=== PATIENT | female | born 1985 | race Caucasian/White ===

== ENCOUNTER 2018-01-27 08:00 | Outpatient (RCR) | payer BC, SELFPAY | END 2018-01-27 15:04 | disposition home or self-care (01) | LOC: PT 08:00 | PROVIDERS: Visit Provider Orthopaedic Surgery Adult Reconstructive Orthopaedic Surgery | DX: S92.214A Nondisplaced fracture of cuboid bone of right foot, initial encounter for closed fracture (principal); S93.401A Sprain of unspecified ligament of right ankle, initial encounter | CPT/HCPCS: 97010; 97033; 97035; 97110; 97140; 97164 ==

== ENCOUNTER → 2020-08-24 10:43 | Outpatient (CLI) | payer BC, SELFPAY | PROVIDERS: PCP Nurse Practitioner Family; Visit Provider Internal Medicine Cardiovascular Disease | DX: R00.2 Palpitations (principal); R01.1 Cardiac murmur, unspecified; E07.9 Disorder of thyroid, unspecified; Z86.32 Personal history of gestational diabetes | CPT/HCPCS: 93270 ==

== ENCOUNTER → 2020-09-01 07:46 | Outpatient (CLI) | payer BC, SELFPAY ==
--- NOTE | 2020-09-01 07:47 | CA_ITS ---
APPROVED REPORT EXAM: Comprehensive 2D, Doppler, and color-flow Echocardiogram Healthcare Financial Analyst: Laurel Do RT(R) Ht: 5 ft 4 in Wt: 180lbs BSA: 1.87 BP: 129/69 mmHg Indications: Palpitations, murmur, tachcyardia, patient currently wearing 30 day event monitor 2D Dimensions LVOT 1.84 cm (M/F) 1.5-2.5 LVEF (Ramirez's) 61.00 % F: 54 - 74 LV Volume 105.00 mL F: 46 - 106 LV Volume Index 56.14 mL/m2 F: 29 - 61 M-Mode Dimensions RVDd 2.66 cm (0.9-2.6) LA Diam 3.51 cm (1.9-4.0) LVDd 4.26 cm (3.5-5.7) Ao Diam 2.74 cm (2.0-3.7) LVDs 3.08 cm (3.5-5.7) IVSd 0.95 cm (0.6-1.1) PWd 1.03 cm (0.6-1.1) EF (Teich) 54.10% FS 27.70% EDV (Teich) 81.30 mL ESV (Teich) 37.30 mL LV Diastology E Decel Time 223.00 (160-240 msec) E/A Ratio 1.0 MED E' 12.90 (< 7 cm/sec) E'/MED E' Ratio 6.99 (>14) LAT E' 16.20 (<10 cm/sec) E/LAT E' Ratio 5.57 (>14) Mitral Valve MV E Max Wilfrid. 90.00 (40-130 cm/s) MV A Velocity 88.00 (40-130 cm/s) E/A Ratio 1.02 MV Decel. Time 223.00 (160-240 ms) MV PHT 65.00 ms Left Ventricle Left atrium is normal size, left ventricle is normal size, there is no concentric left ventricular hypertrophy, visually estimated ejection fraction 55% with no regional wall motion abnormality. Right Ventricle Right atrium and right ventricle are normal size and contractility. Aortic Valve Aortic valve is normal, there is no aortic stenosis or aortic insufficiency. Mitral Valve Mitral valve is grossly normal, there is trace mitral regurgitation. Tricuspid Valve Tricuspid valve is grossly normal, there is trace tricuspid regurgitation, tricuspid regurgitation jet velocity is inadequate for calculation of the right ventricular systolic pressure. Pulmonic Valve Pulmonic valve is poorly visualized. Great Vessels Aortic root is normal size. Pericardium No significant pericardial effusion noted. Conclusion 1. Normal left ventricular size, preserved left ventricular systolic function, visually estimated ejection fraction 55% with no regional wall motion abnormality, diastolic parameters are within normal range. 2. Trace mitral and tricuspid regurgitation. 3. No significant pericardial effusion noted. Electronically signed by : Bentley Peng, 09/01/2020 10:26:26
== END ==
PROVIDERS: PCP Nurse Practitioner Family; Visit Provider Internal Medicine Cardiovascular Disease
DX: R00.2 Palpitations (principal); R01.1 Cardiac murmur, unspecified; E07.9 Disorder of thyroid, unspecified
CPT/HCPCS: 93306

== ENCOUNTER 2021-01-13 07:47 | Emergency (ER) | payer BC, SELFPAY ==
[2021-01-13 07:52] VITALS: BP 138/91; PULSE 86; RESP 16; TEMP 36.8; O2SAT 99; BMI 30.9
[2021-01-13 08:06] VITALS: BP 124/84; PULSE 78; RESP 18; O2SAT 99
[2021-01-13 08:10] LABS: Microscopic, Urine URINE MICROSCOPIC (MICROSCOPIC)
[2021-01-13 08:15] LABS: Appearance,Urine CLEAR (Clear); Bilirubin,Urine Negative (Negative); Blood, Urine TRACE-I (Negative); Color,Urine YELLOW (Yellow); Glucose,Urine (UA) Negative (Negative); Ketones,Urine Negative (Negative); Leukocyte Esterase,Urine Negative (Negative); Nitrate,Urine Negative (Negative); Protein,Urine Negative (Negative); Specific Gravity, Urine >= 1.030 (1.005-1.030); Urobilinogen,Urine 0.2 EU/dl (0.2)
[2021-01-13 08:16] LABS: Urine Pregnancy, HCG Qual. Negative (Negative)
--- NOTE | 2021-01-13 08:18 | HMH.EDABDPAI ---
ED Disposition Clinical Impression: Constipation Disposition: Home, Self-Care Condition on Discharge: Good Instructions: DI for Acute Abdominal Pain Referrals: Lorraine Quinn APRN [Primary Care Provider] - - Critical Care Critical Care Time: No Attestation: On 01/13/21, the high probability of a clinically significant, sudden or life threatening deterioration of the following system(s) required my full and direct attention, intervention and personal management. The time I documented below is in addition to time spent performing reported procedures but includes the following listed in this critical care notation. Medical Decision Making - Medical Records Medical records reviewed: Yes: I reviewed the patient's medical records. - Fredo Inquiry Pt receiving controlled substance: No Vital Signs: 01/13/21 07:52 01/13/21 08:06 01/13/21 08:34 Temperature 98.3 F Temperature Source Oral Pulse Rate [Right Radial] 86 78 73 Respiratory Rate 16 18 18 Blood Pressure [Right Arm] 138/91 H 124/84 126/76 Blood Pressure Mean [Right Arm] 106 97 92 Blood Pressure Source [Right Arm] Automatic Cuff Automatic Cuff Automatic Cuff Blood Pressure Position [Right Arm] Sitting Supine Sitting 02 Sat by Pulse Oximetry 99 99 100 Oxygen Delivery Method Room Air Room Air 01/13/21 09:22 Temperature Temperature Source Pulse Rate [Right Radial] 76 Respiratory Rate 18 Blood Pressure [Right Arm] 124/70 Blood Pressure Mean [Right Arm] 88 Blood Pressure Source [Right Arm] Automatic Cuff Blood Pressure Position [Right Arm] Supine 02 Sat by Pulse Oximetry 99 Oxygen Delivery Method Room Air - Lab Data Lab Results 01/13/21 07:55: Urine Color Yellow, Urine Appearance Clear, Urine pH 6.0, Ur Specific [place] >= 1.030, Urine Protein Negative, Urine Glucose (UA) Negative, Urine Ketones Negative, Urine Blood Trace-i, Urine Nitrate Negative, Urine Bilirubin Negative, Urine Urobilinogen 0.2, Ur Leukocyte Esterase Negative, Urine RBC None, Urine WBC 3-5, Ur Squamous Epith Cells 5-10, Urine Bacteria Trace 01/13/21 07:55: Urine HCG, Qual Negative 01/13/21 08:30: WBC 7.3, RBC 4.46, Hgb 12.6, Hct 38.1, MCV 85.4, MCH 28.2, MCHC 33.0, RDW 12.8, Plt Count 263, MPV 8.0, Neut % (Auto) 69.8, Lymph % (Auto) 25.2, [place] % (Auto) 3.9, Eos % (Auto) 0.7, Baso % (Auto) 0.5, Neut # (Auto) 5.1, Lymph # (Auto) 1.8, [place] # (Auto) 0.3, Eos # (Auto) 0.1, Baso # (Auto) 0.0 01/13/21 08:30: Sodium 138, Potassium 4.2, Chloride 106, Carbon Dioxide 25, Anion Gap 11.2, BUN 14, Creatinine 0.80, Estimated Creat Clear 125, Estimated GFR 81, Est GFR ( Amer) 98, Glucose 105 H, Calcium 9.3, Total Bilirubin 0.7, AST 19, ALT 11 L, Alkaline Phosphatase 72, Total Protein 7.7, Albumin 4.2, Globulin 3.5 H, Albumin/Globulin Ratio 1.2 01/13/21 08:30: Serum HCG, Qual Negative Result diagrams: 01/13/21 08:30 01/13/21 08:30 Orders (Tests/Meds): ED MEDICATIONS Discontinued Medications Generic Name Dose Route Start Last Admin Trade Name Freq PRN Reason Stop Dose Admin Ketorolac Tromethamine 30 mg 01/13/21 08:18 01/13/21 08:37 Ketorolac 30mg/Ml Vial IV 01/13/21 08:19 30 mg ONCE ONE Administration Orphenadrine Citrate 60 mg 01/13/21 08:18 01/13/21 08:38 Orphenadrine Citrate 60mg/2ml Vial IV 01/13/21 08:19 Not Given ONCE ONE - CT Data CT Scan: Abdomen, Pelvis Time Received: 09:[address] Reviewed: Yes: I have reviewed the patient's CT results, I have viewed the radiologist's interpretation Preliminary Findings: Normal/NAD Findings Narrative: ABDOMEN & PELVIS: Cholelithiasis. The liver, spleen adrenal glands pancreas and kidneys have an unremarkable appearance. No evidence of appendicitis. There is a moderate amount of retained colonic feces. No intestinal obstruction or free air. There is a 2.5 x 1.7 cm left ovarian cyst. There is thickening of the umbilicus with minimal stranding of the fat in this region. No abscess evident.
[2021-01-13 08:29] LABS: Bacteria,Urine Trace /lpf
--- NOTE | 2021-01-13 08:33 | CT_ITS ---
PROCEDURE: CT ABDOMEN PELVIS WO CON CLINICAL INDICATION: LBP/suprapubic pain Low back pain, suprapubic pain COMPARISON: No exams were available for comparison TECHNIQUE: Axial images obtained with sagittal and coronal reformats. All CT scans at the facility use one or more dose reduction, viz: automated exposure control, ma/kV adjustment per patient size (including targeted exams where dose is matched to indication, i.e. head), or iterative reconstruction technique. FINDINGS: LOWER THORAX: No acute finding ABDOMEN & PELVIS: Cholelithiasis. The liver, spleen adrenal glands pancreas and kidneys have an unremarkable appearance. No evidence of appendicitis. There is a moderate amount of retained colonic feces. No intestinal obstruction or free air. There is a 2.5 x 1.7 cm left ovarian cyst. There is thickening of the umbilicus with minimal stranding of the fat in this region. No abscess evident. No acute bony findings. IMPRESSION: 1. Thickening with increased soft tissue density in umbilical region concerning for omphalitis. Please correlate clinically. 2. 2.5 cm left ovarian cyst Dictated by: Cesar Toussaint MD 01/13/2021 09:20 Cesar Toussaint MD in [place] 01/13/2021 09:20
[2021-01-13 08:34] VITALS: BP 126/76; PULSE 73; RESP 18; O2SAT 100
[2021-01-13 08:44] LABS: Basophils % 0.5 % (0.1-2.0); Eosinophils # 0.1 K/mm3 (0.0-0.4); Eosinophils % 0.7 % (0.1-12.0); Hematocrit 38.1 % (37.0-47.0); Hemoglobin 12.6 g/dL (12.2-16.2); Lymphocytes # 1.8 K/mm3 (0.7-4.5); Lymphocytes % 25.2 % (10-50); Mean Corpuscular Hemoglobin 28.2 pg (27.0-31.2); Mean Corpuscular Volume 85.4 fl (81-99); Monocytes # 0.3 K/mm3 (0.1-1.0); Monocytes % 3.9 % (1.7-9.3); Neutrophils # 5.1 K/mm3 (1.8-7.8); Neutrophils % 69.8 % (37.0-80.0); Platelet Count 263 K/mm3 (142-424); Red Blood Count 4.46 M/mm3 (4.20-5.40); Red Cell Distribution Width 12.8 % (11.5-17.5); White Blood Count 7.3 K/mm3 (4.8-10.8)
[2021-01-13 08:50] LABS: Alanine Aminotransferase 11 U/L (12-78); Albumin Level 4.2 g/dl (3.5-5.0); Albumin/Globulin Ratio 1.2 (1.1-1.8); Alkaline Phosphatase 72 U/L (38-126); Anion Gap 11.2 mEq/L (5-15); Aspartate Amino Transferase 19 U/L (14-36); Bilirubin,Total 0.7 mg/dl (0.2-1.3); Blood Urea Nitrogen 14 mg/dl (7-17); Calcium 9.3 mg/dl (8.4-10.2); Carbon Dioxide 25 mmol/L (22.0-30.0); Chloride 106 mmol/L (98-107); Creatinine Clearance Estimated 125 mL/min (50-200); Estimated Glomerular Filt Rate 81 ml/min (>60); GFR (African American) 98 ML/MIN (>60); Globulin 3.5 g/dL (1.3-3.2); Glucose 105 mg/dl (74-100); Potassium 4.2 mmoL/L (3.5-5.1); Sodium 138 mmol/L (136-145); Total Protein,Serum 7.7 g/dl (6.3-8.2)
[2021-01-13 08:53] LABS: HCG Qualitative, Serum Negative (Negative)
--- NOTE | 2021-01-13 09:00 | PC.NURSE ---
pt to CT
[2021-01-13 09:22] VITALS: BP 124/70; PULSE 76; RESP 18; O2SAT 99
[2021-01-13 09:36] VITALS: BP 133/81; PULSE 81; RESP 18; O2SAT 96
[2021-01-13 09:49] VITALS: BP 133/81; PULSE 82; RESP 20; TEMP 36.8; O2SAT 98
== END 2021-01-13 09:49 | disposition home or self-care (01) ==
PROVIDERS: Emergency Medicine; Emergency Provider Emergency Medicine; PCP Nurse Practitioner Family
DX: K59.00 Constipation, unspecified (principal); M54.5 Low back pain; F41.9 Anxiety disorder, unspecified; R01.1 Cardiac murmur, unspecified
CPT/HCPCS: 74176; 80053; 81001; 81025; 84703; 85025; 96374; 99284

== ENCOUNTER → 2021-02-06 08:15 | Outpatient (CLI) | payer BC, SELFPAY ==
--- NOTE | 2021-02-06 08:17 | MM_ITS ---
PROCEDURE: MM DIG SCREENING MAMM BI W/CAD Digital Breast Tomosynthesis Included CLINICAL INDICATION: SCREENING There is no personal or family history of breast cancer. There has been previous bilateral breast reduction surgery. The patient currently is on control pills. COMPARISON: MG DMSB DIG MAMM-SCREEN MACO from 06/21/2016 TECHNIQUE: Standard CC and MLO images and 3D Tomosynthesis was obtained. R2 CAD reviewed. FINDINGS: Moderate scattered fibroglandular densities are seen throughout both breasts. There has been interval increased prominence of glandular elements since the previous exam possibly secondary to hormonal influence of the control pills. There is a mole marker left breast. There are no CAD markings. There are couple of benign-appearing microcalcifications right breast. There is no suspicious lesion and no suspicious microcalcifications. IMPRESSION: Moderate breast density with no suspicious lesions seen BI-RAD Category: 2 Benign Finding(s) FOLLOW-UP: 1YR 1 Year Follow-up (A letter has been sent to the patient regarding results of the study.) Dictated by: Dr. Gabe Ascencio MD 02/09/2021 09:30 Dr. Gabe Ascencio MD in [place] 02/09/2021 09:30
== END ==
PROVIDERS: PCP Nurse Practitioner Family; Visit Provider Family Medicine
DX: Z12.31 Encounter for screening mammogram for malignant neoplasm of breast (principal)
CPT/HCPCS: 77063; 77067

== ENCOUNTER 2022-02-03 11:56 | Emergency (ER) | payer BC, SELFPAY ==
[2022-02-03 12:40] VITALS: BP 132/91; PULSE 94; RESP 19; TEMP 36.8; O2SAT 100; BMI 34.0
--- NOTE | 2022-02-03 13:17 | HMH.EDUTC ---
[facility] Disposition Clinical Impression: Strep sore throat Disposition: Home, Self-Care Condition on Discharge: Good Instructions: DI for Strep Throat Additional Instructions: Start antibiotics today be sure to take it as ordered with the full length of time although you should start feeling better in 24-48 hours. Change toothbrush and toothpaste 24-48 hours after starting antibiotics Tylenol or Motrin as needed for fever or pain Encourage fluids, water, Gatorade, Powerade, try cold fluids, popsicles, ice cream will make it feel better You are contagious for 24 hours. Avoid kissing anyone, no eating or drinking after anyone. You are contagious. Follow-up the ER for new or worsening symptoms or no noticeable improvement over the next 24-48 hours. Follow-up with PCP this week. Prescriptions: Azithromycin [Zithromax 250mg tab] 250 mg PO DIRECTED #6 tab Transmission Status: Pending to [id number] Referrals: Lorraine Quinn APRN [Primary Care Provider] - Time of Disposition: 13:24 Medical Decision Making - Fredo Inquiry Pt receiving controlled substance: No Vital Signs: 02/03/22 12:40 02/03/22 13:18 Temperature 98.2 F 98.2 F Temperature Source Oral Pulse Rate 94 H Pulse Rate [Right Brachial] 94 H Respiratory Rate 19 19 Blood Pressure 132/91 H Blood Pressure [Right Arm] 132/91 H Blood Pressure Mean [Right Arm] 104 Blood Pressure Source [Right Arm] Automatic Cuff Blood Pressure Position [Right Arm] Sitting 02 Sat by Pulse Oximetry 100 Oxygen Delivery Method Room Air Orders (Tests/Meds): ORDERS Category Date Time Status Rapid Strep Scrn Group A [Strep Scrn Group A (Rapid)] Lab 02/03/22 12:38 Received Stat [facility] HPI - General Chief complaint: Urgent Treatment Center Stated complaint: sore throat, cough Time Seen by Provider: 02/03/22 13:17 Mode of Arrival: Ambulatory Source of Information: Patient Limitations: No Limitations Description of Symptoms (Recalled from Triage Doc. by RN): PATIENT C/O SORE THROAT X 2 DAYS HEENT Symptoms (Recalled from RN notes): Yes Resp Symptoms (Recalled from RN notes): No Skin Symptoms (Recalled from RN notes): No MS Symptoms (Recalled from RN notes): No Functional Status (Recalled from RN notes): WNL - History of Present Illness Provider Complaint: 36 yr old female presents for sore throat for 2 days, exposed to strep - Related Data Home Medications Medication Instructions Recorded Confirmed bupropion HCl 150 mg 24 hr tablet, 150 mg PO DAILY tab 08/24/20 01/13/21 extended release levothyroxine 125 mcg tablet 125 mcg PO DAILY tab 08/24/20 01/13/21 norgestimate 0.18 mg/0.215 mg/0.25 1 tab PO DAILY tab 08/24/20 01/13/21 mg-ethinyl estradiol 25 mcg tablet Previous Rx's Medication Instructions Recorded Azithromycin [Zithromax 250mg 250 mg PO DIRECTED #6 tab 02/03/22 tab] Allergies Allergy/AdvReac Type Severity Reaction Status Date / Time No Known Allergies Allergy Verified 10/05/20 11:17 - Worker's Comp Is this a Worker's Comp case?: No [facility] History - Hepatitis A Screen Drug use history?: No High risk sexual behaviors?: No History of sexually transmitted infection?: No Currently employed?: No Childcare worker?: No Do you have indoor plumbing?: Yes Do you have electricity?: Yes Attestation statement:: This patient has been screened for Hepatitis A risk factors. I have reviewed the patient's past medical history: Yes Medical History: Reports:: Anxiety, Heart Murmur, Palpitations Other Medical History: Reports: Thyroid Disease Other Surgeries: Yes: No Previous Surgery - Social History Smoking Status: Never smoker Alcohol Intake: never Substance Use Type: denies use Occupational Status: employed, disabled - Psychiatric History Pschychiatric History:: Reports:: Anxiety Family Hx:: Coronary Artery Disease ROS Obtained: Yes Systems reviewed as appropriate & no additional complai
[2022-02-03 13:18] VITALS: BP 132/91; PULSE 94; RESP 19; TEMP 36.8; O2SAT 100
[2022-02-03 13:27] LABS: Strep Scrn Group A (Rapid) Negative (Negative)
== END 2022-02-03 13:30 | disposition home or self-care (01) ==
PROVIDERS: Emergency Provider Nurse Practitioner Family; PCP Nurse Practitioner Family
DX: J02.9 Acute pharyngitis, unspecified (principal); F41.9 Anxiety disorder, unspecified; Z79.899 Other long term (current) drug therapy; Z82.49 Family history of ischemic heart disease and other diseases of the circulatory system
CPT/HCPCS: 87430; 99213; G0463

== ENCOUNTER → 2023-02-11 07:54 | Outpatient (CLI) | payer BC, SELFPAY ==
--- NOTE | 2023-02-11 07:57 | MM_ITS ---
PROCEDURE INFORMATION: Exam: MG Bilateral Screening 3D Mammography Exam date and time: 02/11/2023 7:56 AM Age: 37 years old Clinical indication: Screening. No family history of breast cancer. TECHNIQUE: Imaging protocol: Bilateral Screening tomosynthesis and 2D mammography including computer-aided detection (CAD) when performed. COMPARISON: 1. MG MM DIG SCREENING MAMM BI W/CAD 02/06/2021 8:25 AM 2. MG DMSB DIG MAMM-SCREEN MACO 06/21/2016 4:07 PM FINDINGS: MAMMOGRAPHY: Breast composition: There are scattered areas of fibroglandular density. Mass: No suspicious mass. Architectural distortion: Stable diffuse mild bilateral architectural distortion with history of reduction mammoplasty. Calcifications: No suspicious calcifications. Asymmetric density: None. Skin thickening: None. Axillary adenopathy: None. IMPRESSION: No mammographic evidence of malignancy. Annual screening is recommended unless otherwise clinically indicated. ASSESSMENT: BI-RADS Category 2: Benign
== END ==
PROVIDERS: PCP Nurse Practitioner Family; Visit Provider Family Medicine
DX: Z12.31 Encounter for screening mammogram for malignant neoplasm of breast (principal); Z80.3 Family history of malignant neoplasm of breast
CPT/HCPCS: 77063; 77067

== ENCOUNTER → 2023-04-25 12:09 | Outpatient (CLI) | payer BC, SELFPAY ==
--- NOTE | 2023-04-25 12:10 | NM_ITS ---
APPROVED REPORT Exam: Nuclear Stress Test Indication: FAMILY HX, PRE-OP Patient Location: Outpatient Stress Tech: Radha Nava [place] Tech:Courtney KyleIRENE RT(R)(N) Ht: 5 ft 2 in Wt: 233 lbs Bra Size: 38B HR: 116 bpm BP: 125/74 mmHg BSA: 2.04 m2 TID: 1.12 BMI: 42.6 History: FAMILY HX, PRE-OP Procedure: Patient exercised on Roger protocol 7:00 minutes and sec, resting heart rate 116 bpm, resting blood pressure 125/74 mmHg, with exercise maximum heart rate achived was 183 bpm which is 101 % of the maximum predicted heart rate and blood pressure was 176/85 mmHg. Test was stopped due to FATIGUE. Patient denied any complaint of chest pain. Patient has exercise capacity, achieved 10.1 METs of workload on treadmill, the blood pressure response to exercise was . Cardiac Stress and Resting SPECT Images: Cardiac Stress and Resting SPECT images were obtained using technetium 99m Myoview 32.9 mCi stress and 10.60 mCi at rest. Raw images demonstrate significant breast tissue overlying the cardiac silhouette. Resting and stress imaging in both supine and prone positions demonstrate no definite reversible or fixed perfusion defects. Gated imaging demonstrates normal global and regional LV systolic function. LVEF is calculated at 54%. Conclusion: No definite reversible or fixed perfusion defects. Gated imaging demonstrates normal global and regional LV systolic function. LVEF is calculated at 54%. Electronically signed by : Chela Birch, 04/28/2023 01:06:32
--- NOTE | 2023-04-25 14:25 | CA_ITS ---
APPROVED REPORT Exam: Exercise Treadmill Technologist: Radha Bejarano, Ht: 5 ft 4 in Wt: 233 lbs BSA: 2.09 m2 HR: 98 bpm BP: 127/75 mmHg Rhythm: NSR Medical History Medications: Levothyroxine,,,,, BuPROPION HCI,,,,, Stress Test Details Test: Roger HR Resting HR: 116 bpm Max Heart Rate (APMHR): 182 bpm Max HR Achieved: 183 bpm Target HR (85% APMHR): 155 bpm % of APMHR: 101 Recovery HR: 109 bpm HR response to stress: Normal HR response to stress BP Resting BP: 125.0/74 mmHg Max BP: 176/85 mmHg Recovery BP: 127.0/81.0 mmHg BP response to stress: Normal blood pressure response to stress. ECG Resting ECG: NSR, rightward axis, ST-T abns inferolaterally, nonspecific ST-T abns laterally Stress ECG: No change Arrhythmia: PVCs Recovery ECG: No change Recovery Arrhythmia: None Clinical Exercise duration: 07:00 min Highest Stage Achieved: III Exercise capacity: 10.1 METs Overall Exercise Capacity for Age: Average Stress ECG Conclusion The patient was able to walk for 7:00 on Roger Protocol, achieving a total of 10.1 METS. She had an average exercise capacity compared to age and sex matched peers. She exhibited a normal HR and BP response to exercise. Max HR: 183 % if PM: 101% Max BP: 176/85 METs: 10.1 Test stopped due to: SOA Symptoms: No CP Arrhythmias/Ectopy: Rare PVC. ST-T Changes: No significant changes compared to resting EKG. Conclusion: Average exercise capacity. Non-diagnostic stress ECG due to baseline abnormalities. Myoview images reported separately. Test Summary REST . . . . . . . Sitting REST . . . . . . . Standing REST 04:38 0.0 0.0 116 . 125/ 74 . . Stage 1 01:00 10.0 1.7 133 . . . . Stage 1 02:00 10.0 1.7 142 . . . . Stage 1 03:00 10.0 1.7 148 . 176/ 85 . . Stage 2 01:00 12.0 2.5 156 . . . . Stage 2 02:00 12.0 2.5 165 . . . . Stage 2 03:00 12.0 2.5 169 . . . . Stage 3 01:00 14.0 3.4 182 . . . Stop exercise at 07:00 RECOVERY 01:00 0.0 0.0 160 . . . . RECOVERY 02:00 0.0 0.0 124 . . . . RECOVERY 03:00 0.0 0.0 112 . 149/ 82 . . RECOVERY 04:00 0.0 0.0 108 . 129/ 67 . . RECOVERY 05:00 0.0 0.0 110 . 127/ 81 . . RECOVERY 05:33 0.0 0.0 108 . 127/ 81 . . Electronically signed by : Chela Birch, 04/28/2023 01:03:03
== END ==
PROVIDERS: PCP Nurse Practitioner Family; Visit Provider Nurse Practitioner Family
DX: Z01.810 Encounter for preprocedural cardiovascular examination (principal); R00.2 Palpitations; R94.31 Abnormal electrocardiogram [ECG] [EKG]
CPT/HCPCS: 78452; 93017; A9502

== ENCOUNTER → 2023-05-02 13:19 | Outpatient (CLI) | payer BC, SELFPAY | PROVIDERS: PCP Nurse Practitioner Family; Visit Provider Nurse Practitioner Family | DX: Z01.810 Encounter for preprocedural cardiovascular examination (principal); R00.2 Palpitations; R94.31 Abnormal electrocardiogram [ECG] [EKG] | CPT/HCPCS: 93306 ==

== ENCOUNTER 2024-08-19 07:47 | Outpatient (CLI) | payer BC, SELFPAY ==
--- NOTE | 2024-08-19 07:52 | MM_ITS ---
PROCEDURE INFORMATION: Exam: MG Bilateral Screening 3D Mammography Exam date and time: 08/19/2024 7:47 AM Age: 39 years old Clinical indication: Screening examination TECHNIQUE: Imaging protocol: Bilateral Screening tomosynthesis and 2D mammography including computer-aided detection (CAD) when performed. COMPARISON: 1. MG MM DIG SCREENING MAMM BI W/CAD 02/11/2023 7:56 AM 2. MG MM DIG SCREENING MAMM BI W/CAD 02/06/2021 8:25 AM FINDINGS: MAMMOGRAPHY: Breast composition: There are scattered areas of fibroglandular density. Mass: No suspicious masses. Architectural distortion: Postsurgical changes are redemonstrated in both breasts. Calcifications: No suspicious calcifications. Asymmetric density: None. Skin thickening: None. Axillary adenopathy: None. IMPRESSION: No mammographic evidence of malignancy. Annual screening is recommended unless otherwise clinically indicated. ASSESSMENT: BI-RADS Category 2: Benign.
== END 2024-08-19 23:59 | disposition home or self-care (01) ==
LOC: RAD 07:48
PROVIDERS: PCP Nurse Practitioner Family; Visit Provider Family Medicine
DX: Z12.31 Encounter for screening mammogram for malignant neoplasm of breast (principal)
CPT/HCPCS: 77063; 77067

== ENCOUNTER 2025-08-22 07:48 | Outpatient (CLI) | payer BC, SELFPAY ==
--- OUTSIDE RECORDS SUMMARY | 2016-06-24 08:00 | XMS_ITS | Encounter Summary ---
Author Organization [facility] Address [address] [place] [address] Care Team Providers Care Bin Cleaner Name Role Phone Aurea Lynn Primary Care Provider [phone] Encounter Details Date Type Department Care Team (Late Contact Info) Description 06/24/2016 8:00 AM EDT Hospital Encounter [facility] [address] [place] [phone] Social History Tobacco Use Types Packs/Day Years Used Date Smoking Tobacco: Never Smokeless Tobacco: Never Alcohol Use Standard Drinks/Week Comments No 0 (1 standard drink = 0.6 oz pur e alcohol) Comments No Sex and Gender Information Value Date Recorded Sex Assigned at Female 05/17/2025 9:16 AM EDT Legal Sex Female 12:51 PM EDT Gender Identity Not on file Sexual Orientation Straight 05/17/2025 9: 16 AM EDT documented as of this encounter Plan of Treatment Upcoming Encounters Date Type Department Care Team (Late Contact Info) Description 05/25/2026 8:15 AM EDT Office Visit [facility] [address] [place] [phone] Yasmeen Olivares MD [address] [place] [phone] documented as of this encounter Procedures Procedure Name Priority Date/Time Associated Diagnosis Comments US THYROID Routine 06/24/2016 1:40 PM EDT Abnormal thyroid ultrasound documented in this encounter Results * US thyroid (06/24/2016 1:40 PM EDT) Narrative SYSTEMGENERATED, DOCUMENTATION - 06/24/2016 1:40 PM EDT Please see performing physicians note for result. us Carmen Miles MD IMG US ORDERABLES Final Result documented in this encounter Visit Diagnoses Not on filedocumented in this encounter Care Teams Bin Cleaner Relationship Specialty Start Date End Date Aurea Lynn PA PCP - General Physician Banquet Attendant 06/24/16 05/12/23 documented as of this encounter
--- OUTSIDE RECORDS SUMMARY | 2018-03-16 08:00 | XMS_ITS | Encounter Summary ---
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 Procedures US Thyroid Carmen Miles MD [address] [place] [address] Phone: tel: fax: [facility] [address] [place] [phone] Phone: tel: fax: Referral ID Status Reason Start Date Expiration Date Visits Re quested Visits Authorized [id number] Closed 03/16/2018 03/16/2019 1 1 Encounter Details Date Type Department Care Team (Latest Contact Info) Description 03/16/2018 8:00 AM EDT Hospital Encounter [facility] [address] [place] [phone] 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 Social History Tobacco Use Types Packs/Day Years [...] Encounters Date Type Department Care Team (Late st Contact Info) Description 05/25/2026 8:15 AM EDT Office Visit [facility] [address] [facility] [facility] [address] [place] [address] Yasmeen Olivares MD [address] [facility] [facility] [address] [address] [place] [address] documented as of this encounter Procedures Procedure Name Priority Date/Time Associated Diagnosis Comments US THYROID Routine 03/16/2018 1:44 PM EDT 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 documented in this encounter Results * US Thyroid (03/16/2018 1:44 PM EDT) Narrative SYSTEMGENERATED, DOCUMENTATION - 03/16/2018 1:44 PM EDT Please see performing physician's note for result. 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
--- OUTSIDE RECORDS SUMMARY | 2024-03-03 04:30 | XMS_ITS ---
Author Organization [facility] Address [address] [facility] [address] [place] [address] Care Team Providers Care Clerical Associate Name Role Phone Юлия Hogan Unavailable [phone] REASON FOR VISIT aub Social History Sex Assigned At : Social History Observation Description Sex Assigned At Female Encounters Encounter Location Date Provider Diagnosis [facility] [address] [place] [address] 03/03/2024 Юлия Hogan Plan Of Treatment Next Appt Details Provider Name:Юлия Hogan , 02/08/2026 08:30:00 AM, [address] [facility] [address], [place], [address], Progress Notes * Hanane TITUS MDOB:0 1985 (40 yo F)Acc No.[id number]:03/03/2024 Patient: Raffy sheltonHanane bhardwaj Provider: Susan Hogan APRN :1985 A ge:38 Y S ex:Female Date:03/03/2024 Address:[address] [place] [address] Subjective: * Chief Complaints: * A ub * Electronic signature of Salma Hogan APRN on 08/22/2025 at 07:52 AM EDT Sign off status: Pending Visit Status: R /S (Rescheduled) * Provider: Susan Hogan APRN Date: 0 03/03/2024 Generated for Sarah atkins/Jimena/Damián on: 1 07:52 AM EDT
--- OUTSIDE RECORDS SUMMARY | 2024-03-03 05:00 | XMS_ITS ---
Author Organization [facility] Address [address] [facility] [address] [place] [address] Care Team Providers Care Spray Crew Name Role Phone SamiraЮлия cardozo Unavailable [phone] Allergies No Known Allergies REASON FOR VISIT aub Medications Medication SIG (Take, Route, Frequency, Duration) Notes Start Date End Date Status Synthroid Active Omeprazole Active Wellbutrin Active Social History Sex Assigned At : Social History Observation Description Sex Assigned At Female Social History Drugs/Alcohol: Social Info Question Answer Notes Drugs Have you used drugs other than those for medical reasons in the past 12 months? No Alcohol Screen Did you have a drink containing alcohol in the past year? No Points 0 Interpretation Negative Encounters Encounter Location Date Provider Diagnosis [facility] [address] [facility] [address] [place] [address] 03/03/2024 Юлия Hogan Plan Of Treatment Next Appt Details Provider Name:Юлия Hogan , 02/08/2026 08:30:00 AM, [address] [facility] [address], [place], [address], Progress Notes * Hanane TITUS MDOB:0 1985 (40 yo F)Acc No.[id number]:03/03/2024 Progress Note Patient: Raffy sheltonHanane bhardwaj Provider: Susan Hogan APRN :1985 A ge:38 Y S ex:Female Date:03/03/2024 Address:[address] [place] [address], [id number] Subjective: * Chief Complaints: * A ub * Medical History: Hypothyroidism Obesity Anxiety Depression Abnormal paps HPV Medical History Verified * Forensic Audit Expert History: M enstrual History: L MP: 0 01/04/2024 T karma between periods: 2 1 to 32 days apart D uration: 5 -7 S exual Activity/Contraception: C urrently sexually active Y es E eugene sexually active Y es L ast Mammogram Date (Historical) B I-RADS Category 2 -. B irth control (Historical) v asectomy. L ast Colposcopy (Historical) D ate: 0 L ast Pap Smear/HPV Date (Historical) , negative01/23/23, negative01/2022, LGSIL, High Risk HPV Positive. * OB History: G P : 2 Para: 2 * Surgical History: Breast Reduction (09/2016) Gastric sleeve surgery 05/2023 Surgical History verified. * Hospitalization/Major Diagno stic Procedure: No Hospitalization Documented. Hospitalization Verified. * Family History: F amily History Verified.. none noted. * Social History: T obacco Use: T obacco Use/Smoking S NICHOLAS STATUS: Never smoker. D rugs/Alcohol: D rugs H ave you used drugs other than those for medical reasons in the past 12 months? N o Alcohol Screen D id you have a drink containing alcohol in the past year? N o P oints 0 I nterpretation N egative S ocial History Verified. * Medications: T akingOmeprazole Synthroid Wellbutrin Medication List reviewed and reconciled with the patientTaking Omeprazole Taking Synthroid Taking Wellbutrin Medication List reviewed and reconciled with the patient * Allergies: N .K.D.A.yesAllergies Verified. * Electronic signature of Salma Hogan APRN on 08/22/2025 at 07:53 AM EDT Sign off status: Pending Visit Status: R /S (Rescheduled) * Provider: Susan Hogan APRN Date: 0 03/03/2024 Generated for Sarah atkins/Jimena/eTransmitting on: 1 07:53 AM EDT
--- OUTSIDE RECORDS SUMMARY | 2024-03-26 04:30 | XMS_ITS ---
Author Organization [facility] Address [address] [facility] [address] [place] [address] Care Team Providers Care Social Media Designer Name Role Phone Юлия Hogan Unavailable [phone] REASON FOR VISIT aub Social History Sex Assigned At : Social History Observation Description Sex Assigned At Female Encounters Encounter Location Date Provider Diagnosis [facility] [address] [place] [address] 03/26/2024 Юлия Hogan Plan Of Treatment Next Appt Details Provider Name:Юлия Hogan , 02/08/2026 08:30:00 AM, [address] [facility] [address], [place], [address], Progress Notes * Hanane TITUS MDOB:0 1985 (40 yo F)Acc No.[id number]:03/26/2024 Progress Note Patient: Raffy vincentricha Hanane Lance Provider: Susan Hogan APRN :1985 A ge:38 Y S ex:Female Date:03/26/2024 Address:[address] [place] [address] [place] [address] Subjective: * Chief Complaints: * A ub * Electronic signature of Salma Hogan APRN on 08/22/2025 at 07:52 AM EDT Sign off status: Pending Visit Status: R /S (Rescheduled) * Provider: Susan Hogan APRN Date: 0 03/26/2024 Generated for Sarah atkins/Jimena/Damián on: 1 07:52 AM EDT
--- OUTSIDE RECORDS SUMMARY | 2024-03-26 05:00 | XMS_ITS ---
Author Organization [facility] Address [address] [facility] [facility] [address] [place] [address] Care Team Providers Care Tomato Paste Maker Name Role Phone Юлия Hogan Unavailable [phone] REASON FOR VISIT aub Social History Sex Assigned At : Social History Observation Description Sex Assigned At Female Encounters Encounter Location Date Provider Diagnosis [facility] [address] [place] [address] 03/26/2024 Юлия Hogan Plan Of Treatment Next Appt Details Provider Name:Юлия Hogan , 02/08/2026 08:30:00 AM, [address] [facility] [address], [place], [address], Progress Notes * Hanane TITUS MDOB:0 1985 (40 yo F)Acc No.[id number]:03/26/2024 Progress Note Patient: Raffy vincentricha Hanane Lance Provider: Susan Hogan APRN :1985 A ge:38 Y S ex:Female Date:03/26/2024 Address:[address] [place] [address] [place] [address] Subjective: * Chief Complaints: * A ub * Electronic signature of Salma Hogan APRN on 08/22/2025 at 07:52 AM EDT Sign off status: Pending Visit Status: R /S (Rescheduled) * Provider: Susan Hogan APRN Date: 0 03/26/2024 Generated for Sarah atkins/Jimena/Damián on: 1 07:52 AM EDT
--- OUTSIDE RECORDS SUMMARY | 2024-06-23 05:00 | XMS_ITS ---
Author Organization [facility] Address [address] [facility] [address] [place] [address] Care Team Providers Care Manager Group Name Role Phone Samira Юлия Unavailable [phone] Results Component Value Reference Range Notes *US Pelvis Complete Transabd ominal/Vaginal (Non-OB) Reviewed date:06/30/2024 12:18:50 PM Interpretation: Performing Lab: Notes/Report: [facility] Transvaginal Pelvic Study Report Name: ARMIN TITUS Accession/Encounter No:[id number] : 1985 Age: 38 Gender: F Race: White Study Date: Jun 23, 2024 Study Time: 08:56 AM Reading Group: Yuliana Hatch MD Referring Group: Юлия Hogan APRN Ordering Phys: Юлия Hogan APRN Pickling Operator: Windy Caballero RDMS Equipment: Affiniti 30 Study Quality: Good Indications: Evaluation of abnormal bleeding. A complete pelvic transvaginal ultrasound was performed. Sag AP Trans Volume cm cm cm ml Uterus 7.88 4.79 5.89 116.41 Right ovary: 3.18 2.34 1.44 5.61 Left ovary: 2.2 1.63 2.74 5.14 Endometrium thickness: 16.9 mm Findings: A transvaginal exam was performed. The uterus is normal and anteverted. The uterus is 7.88 x 4.79 x 5.89 cm, with volume of 116.41 ml. The endometrium appears abnormal, measuring 16.9 mm. Unremarkable right ovary measures 3.18 x 2.34 x 1.44 cm, volume 5.61 ml. Unremarkable left ovary measures 2.2 x 1.63 x 2.74 cm, volume 5.14 ml. The cervix is 3.42 cm long. Conclusions: Uterus and ovaries appear normal. No free fluid or adnexal masses noted Approved By: Yuliana Hatch MD Approved at: June 25, 2024 09:54 PM EDT Electronically Signed on Studycast ARMIN TITUS 2024-06-23 Page 1 of 1 [facility] , [facility] REASON FOR VISIT aub Social History Sex Assigned At : Social History Observation Description Sex Assigned At Female Encounters Encounter Location Date Provider Diagnosis [facility] [address] [place] [address] 06/23/2024 Юлия Hogan Abnormal uterine bleeding (AUB) N93.9 Assessments Encounter Date Diagnosis (ICD Code) Assessment Notes Treatment Notes Treatment Clinical Notes Section Notes 06/23/2024 Abnormal uterine bleeding (AUB) (ICD-10 - N93.9) Plan Of Treatment Next Appt Details Provider Name:Юлия Samira , 02/08/2026 08:30:00 AM, [address], [place], [address], Progress Notes * Armin TITUS MDOB:0 1985 (40 yo F)Acc No.[id number]:06/23/2024 Progress Note Patient: Raffy sheltonArmin bhardwaj Natalio Provider: Susan Hogan APRN :1985 A ge:38 Y S ex:Female Date:06/23/2024 Address:[address] [place] [address] Subjective: * Chief Complaints: * A ub Assessment: * Assessment: 1. A bnormal uterine bleeding (AUB) - N93.9 (Primary) Plan: * Treatment: Billing Information: * Procedure Codes: * Electronic signature of Salma Hogan APRN on 08/22/2025 at 07:52 AM EDT Sign off status: Pending Visit Status: Vikas CABAN (Check Out) * Provider: Susan Hogan APRN Date: 0 06/23/2024 Generated for Sarah atkins/Jimena/eTransmitting on: 1 07:52 AM EDT
--- NOTE | 2025-08-22 07:50 | MM_ITS ---
PROCEDURE INFORMATION: Exam: MG Bilateral Screening 3D Mammography Exam date and time: 08/22/2025 8:03 AM Age: 40 years old Clinical indication: Screening examination TECHNIQUE: Imaging protocol: Bilateral Screening tomosynthesis and 2D mammography including computer-aided detection (CAD) when performed. COMPARISON: 1. MG MM DIG SCREENING MAMM BI W/CAD 08/19/2024 7:47 AM 2. MG MM DIG SCREENING MAMM BI W/CAD 02/11/2023 7:56 AM FINDINGS: MAMMOGRAPHY: Breast composition: There are scattered areas of fibroglandular density. Mass: No suspicious masses. Architectural distortion: Contain surgical changes redemonstrated in both breasts. Calcifications: No suspicious calcifications. Asymmetric density: None. Skin thickening: Diffuse bilateral thickening, unchanged. Axillary adenopathy: None. IMPRESSION: No mammographic evidence of malignancy. Annual screening is recommended unless otherwise clinically indicated. ASSESSMENT: BI-RADS Category 2: Benign.
--- OUTSIDE RECORDS SUMMARY | 2025-08-22 07:53 | XMS_ITS | Data Portability ---
Author Organization [place] - [facility] - [place] & [place] [facility] ADMIN Address [address] [place] [id number] Care Team Providers Care Equipment Hire Manager Name Role Phone ZACKERY RODRÍGUEZ Primary Care Provider Assessment Encounter Date Assessment Date Assessment LastModified by Organization Details LastModified Time 05/24/2024 05/24/2024 A total of 8 minutes was spent with the pt today. Recommendations: 1. Track intake to ensure 7449-7014 kcal/day 2. Increase exercise by aiming for +2d/week of strength-training/ activity Pt doing well overall. Addressed concerns today. Pt was reassured at today's visit. Pt verbally agreed to recommendations and goals. Denied further questions/concerns . RDN will monitor weight loss, labs, meds, and lifestyle modifications. Will f/up as scheduled or PRN. [email or web address] Not available 05/24/2024 14:16:40 Plan of Treatment Reminders Order Date Submit Date Provider Last Modified By Organization Details Last Modified Time Details Appointments OV EST 20 2025 09:00A HERBERT Flanagan Not available Not available Not available Lab HbA1c (hemog lobin A1c), blood 2024 025 lucrecia s [facility], [address], [address], [place], [address], 01/07/2025 15:03:02 folate , serum 2024 025 lucrecia s [facility], [address], [address], [place], [address], 01/07/2025 15:03:01 prealb umin, serum 2024 025 [email or web address] s [facility], [address], [address], [place], [address], 01/07/2025 15:03:01 thiami ne, QN, blood 2024 025 ahaugrudgrave s [facility], [address], [address], [place], [address], 01/07/2025 15:03:01 methyl malona te, QN, serum or plasma 2024 025 [facility], [address], [address], [place], [address], 01/07/2025 15:03:02 iron + TIBC + ferrit in, serum 2024 025 [email or web address] s [facility], [address], [address], [place], [address], 01/07/2025 15:03:02 vitami n D, 25-hyd merritt, total, serum 2024 025 [facility], [address], [address], [place], [address], 01/07/2025 15:03:02 vitami n E, serum 2024 025 [facility], [address], [address], [place], [address], 01/07/2025 15:03:02 vitami n A (retin ol), serum 2024 025 [facility], [address], [address], [place], [address], 01/07/2025 15:03:02 lipid panel, serum 2024 025 [facility], [address], [address], [place], [address], 01/07/2025 15:03:02 CBC w/ auto diff 2024 025 [facility], [address], [address], [place], [address], 01/07/2025 15:03:02 CMP, serum or plasma 2024 025 [facility], [address], [address], [place], [address], 01/07/2025 15:03:02 Referral None record ed. Procedures None record ed. Surgeries None record ed. Imaging None record ed. Medication Orders None record ed. Patient TargetsNo targets recorded. Patient InstructionsNo instructions recorded. Reason for Referral None Reported. Results Created Date Observation Date Name Description Value Unit Range Abnormal Flag Note LastModifiedBy Organization Detail LastModifiedTime Result Notes None recorded. Problems Name Problem SNOMED Code Status Onset Date Resolution Date Notes Provider Name and Address Organization Details Recorded Time Impaired glucose tolerance 7408095 Active 2022 HERBERT Pagan [address], [place], [address] , [facility] - [facility] & [place] 3 08:16:33 Hyperlipidemi a 24535558 Active 2022 HERBERT Pagan [address], [place], [address] , [facility] - [facility] & [place] 3 08:16:35 Hypothyroidis m 93185448 Active 2023 HERBERT Pagan [address], [place], [address] , [facility] - [facility] & [place] 4 09:46:37 Intentional weight loss 266439759 Active 2023 HERBERT Pagan [address], [place], [address] , [facility] & [place] 4 08:06:21 Constipation 06669327 Active 2023 HERBERT Pagan [address], [place], [address] , [facility] & [place] 4 09:27:23 Disorder of function of stomach 873106670 Active 2024 HERBERT Pagan [address], [place], [address] , [facility] & [place] 5 09:14:41 Problem Notes None recorded. Procedures Surgical History Date Name Laterality Status Provider Name and Address Organization Details Recorded Time extraction of wisdom tooth completed Esther Escobar [facility] & [place] 04/01/2023 11:43:46 Breast reduction completed Esther Escobar [facility] & [place] 04/01/2023 11:44:02 laparoscopic sleeve gastrectomy completed Esther Escobar [facility] & [place] 05/27/2023 08:17:50 Imaging Results None recorded. Procedure Notes None recorded. Medical Equipment None Reported. Allergies No known drug allergies Medications Name Sig Start Date Stop Date Status Note LastModified by Organization Details LastModified Time amoxicillin 500 mg capsule 05/20 completed Not Available Not Available Not Available levothyroxi ne 137 mcg tablet TAKE 1 TABLET BY MOUTH ONCE DAILY active Not Available Not Available No t Available Iron (ferrous sulfate) 325 mg (65 mg iron) tablet Take 1 tablet every day by oral route. active Not Available Not Available No t Available azithromyci n 250 mg tablet 04/03 completed Not Available Not Available Not Available Synthroid 150 mcg tablet Take 1 tablet every day by oral route. 12/02 completed Not Available Not Available Not Available meloxicam 15 mg tablet TAKE 1 TABLET BY MOUTH ONCE DAILY 03/01 completed Not Available Not Available Not Available prednisone 20 mg tablet TAKE 3 TABLETS BY MOUTH DAILY FOR 7 DAYS, THEN TAKE 2 TABLETS DAILY FOR 7 DAYS, THEN TAKE 1 TABLET DAILY FOR 7 DAYS, THEN 1/2 TABLET DAILY FOR 7 DAYS 11/21 completed Not Available Not Available Not Available erythromyci n 5 mg/gram (0.5 %) eye ointment 11/21 completed Not Available Not Available Not Available levothyroxi ne 125 mcg tablet TAKE 1 TABLET BY MOUTH ONCE DAILY AND ONE-HALF TABLET ON SUNDAYS ONLY 05/24 completed Not Available Not Available Not Available neomycin-po lymyxin-dex ameth 3.5 mg/mL-10,00 0 unit/mL-0.1 % eye drops 04/01 completed Not Available Not Available Not Available gabapentin 300 mg capsule TAKE 1 CAPSULE BY MOUTH THREE TIMES DAILY FOR 7 DAYS 05/27 completed Not Available Not Available Not Available omeprazole 20 mg capsule,del ayed release Take 1 capsule every day by oral route for 30 days. 05/24 completed Not Available Not Available Not Available methylpredn isolone 4 mg tablets in a dose pack 04/03 completed Not Available Not Available Not Available celecoxib 100 mg capsule TAKE 1 CAPSULE BY MOUTH TWICE DAILY FOR 7 DAYS 05/27 completed Not Available Not Available Not Available clobetasol 0.05 % scalp solution APPLY SOLUTION TOPICALLY DIRECTLY TO AFFECTED AREAS OF SCALP EVERY EVENING THREE NIGHTS PER WEEK ON FRIDAY, FRIDAY AND FRIDAY AND RINSE OUT IN THE MORNING. USE NO MORE THAN 14 NIGHTS PER MONTH active Not Available Not Available No t Available ondansetron 4 mg disintegrat ing tablet DISSOLVE 1 TABLET IN MOUTH EVERY 6 HOURS 08/18 completed Not Available Not Available Not Available amoxicillin 875 mg-potassiu m clavulanate 125 mg tablet Take 1 tablet every 12 hours by oral route with meal(s) for 10 days, for throat infection . 03/01 completed Not Available Not Available Not Available bupropion HCl XL 150 mg 24 hr tablet, extended release TAKE 1 TABLET BY MOUTH ONCE DAILY IN THE MORNING active Not Available Not Available No t Available BD Ultra-Fine Mini Pen Needle 31 gauge x 16 USE 1 PEN NEEDLE TO INJECT SAXENDA UNDER THE SKIN DAILY 04/03 completed Not Available Not Available Not Available lactulose 10 gram/15 mL oral solution Take 15 mL by mouth every day as needed, for Constipat ion. 05/23 completed Not Available Not Available Not Available calcium citrate active Not Available Not Available Not Available multivitami n active Not Available Not Available Not Available Saxenda 3 mg/0.5 mL (18 mg/3 mL) subcutaneou s pen injector INJECT 0.6MG SUBCUTANE OUSLY ONCE DAILY 04/01 completed Not Available Not Available Not Available Tri-Lo-Jamia 0.18 mg/0.215 mg/0.25 mg-0.025 mg tablet TAKE 1 TABLET BY MOUTH ONCE DAILY FOR 90 DAYS 05/14 completed Not Available Not Available Not Available Vitals Date Recorded Body height Heart rate Body temperature Body mass index (BMI) Body weight Systolic And Diastolic Provider Name and Address Organization Details Last Updated DateTime 5 157.48 cm 86 /min 98.4 [degF] 25.9 kg/m2 73454.4 g 110/86 mm[Hg] [facility] & [place] 5 08:37:55 Date Recorded Body height Heart rate Body temperature Body mass index (BMI) Body weight Systolic And Diastolic Provider Name and Address Organization Details Last Updated DateTime 5 157.48 cm 93 /min 98.5 [degF] 26 kg/m2 59954.1 2 g 110/74 mm[Hg] [facility] & [place] 5 09:41:56 Date Recorded Body height Heart rate Body temperature Body mass index (BMI) Body weight Systolic And Diastolic Provider Name and Address Organization Details Last Updated DateTime 4 157.48 cm 83 /min 98.9 [degF] 28.1 kg/m2 35457.0 7 g 109/73 mm[Hg] [facility] & [place] 4 10:07:06 Date Recorded Body height Body mass index (BMI) Body weight Body temperature Heart rate Systolic And Diastolic Provider Name and Address Organization Details Last Updated DateTime 4 157.48 cm 27 kg/m2 49482.2 3 g 97.7 [degF] 80 /min 113/68 mm[Hg] Esther Escobar [facility] & [place] 08:59:11 Social History None recorded. Functional Status Question Answer Note LastModified by Organizat ion Details LastModified Time Do you use any illicit or recreational drugs? No [email or web address] Information not available 04/01/2023 What is your level of alcohol consumption? None [email or web address] Information not available 04/01/2023 What is your occupation? [employer] [email or web address] Information not available 08/18/2023 Mental Status None recorded. Family History Relationship Description Onset Age of this Age Resolved Age Notes LastModified by Organization Details LastModified Time Sister Obese [email or web address] Not availabl e 05/23/2025 09:32:55 Maternal Grandfather Hypertensive disorder [email or web address] Not available 11:41:36 Maternal Grandfather Heart disease [email or web address] Not available 11:41:55 Maternal Grandmother Malignant neoplasm of uterus [email or web address] Not available 05/04 09:32:55 Paternal Grandfather Malignant neoplasm of lung [email or web address] Not available 05/04 09:32:55 Mother Chronic obstructive pulmonary disease [email or web address] Not available 11:42:52 Paternal Grandmother Chronic obstructive pulmonary disease [email or web address] Not available 11:42:52 Medical History Condition Response Diabetes Y Muscle, Joint, or Bone Problems Y Other Y Hypertension Y Hypothyroidism Y High Cholesterol Y Gynecological HistoryNo gynecological history recorded. Obstetrics History GPAL:G 0 P 0 0 0 0 Past Encounters Encounter ID Performer Location Encounter Start Date Encounter Closed Date Diagnosis/Indication Diagnosis SNOMED-CT Code Diagnosis ICD10 Code Diagnosis IMO Codes Diagnosis Note [id number] HERBERT Pagan [facility] [address] [place] [address] 04/03/2023 07:51:25 04/03/2023 11:19:47 Obesity 880514525 E66.9 The patient will be scheduled for the following. Initial intake lab work, cardiac clearance, and EGD. All risks complicati ons and alternativ es of the upper endoscopy were discussed with the patient and agreed upon. These include but are not limited to, over sedation, bleeding, perforatio n. Patient will be educated by the surgical weight loss team regarding if any medical managed weight loss will be required and they will follow this according to their recommenda tions. patient will follow-up in office after all testing has been completed Essential hypertension 71330670 I10 elevated BP - advised patient discuss hypertensi on management with PCP Impaired g lucose tolerance 7536210 R73.03 Hyperlipidemia 48660144 E78.5 Nonulcer dyspepsia 18683 07 K30 [id number] [facility] [address] [facility] [address] [place] [address] 05/14/2023 07:09:31 05/14/2023 12:23:08 Morbid obesity 243422049 E66.01 Pre-surger y evaluation 488748146 Z01.818 Postoperative pain 83167 9007 G89.18 Hyperlipidemia 78604398 E78.5 Impaired g lucose tolerance 5236766 R73.03 [id number] HERBERT Pagan [facility] [address] [facility] [address] [place] [address] 05/27/2023 07:52:41 05/27/2023 10:11:15 History of gastrectomy 401806392 Z90.3 [id number] [facility] [address] [facility] [address] [place] [address] 06/20/2023 09:47:38 06/20/2023 10:33:18 Impaired glucose tolerance 2517547 R73.03 Intentiona l weight loss 220947268 R63.8 Patient is doing well status post sleeve gastrectom y. Encouraged patient to increase calories to minimum 1000 daily. Advised 70 80 g of protein and augment with fruit healthy fruits and vegetables in order to get calories up. Patient met with dietitian today for additional dietary education/ support. Follow-up 2 months History of gastrectomy 524530766 Z90.3 We discussed diet and the importance of adequate protein. Continue PPI and vitamins.E ncouraged routine exercise. Advised exercising such that maintain target HR x 20 min 3dy/wk Patient is status post bariatric surgery and at increased risk for vitamin deficienci es and malnutriti on. Bariatric vitamin panel ordered today. Patient will be contacted to correct any vitamin deficienci es. [id number] HERBERT Pagan [facility] [address] [facility] [address] [place] [address] 08/18/2023 09:36:01 08/18/2023 10:33:31 Impaired glucose tolerance 4336979 R73.03 Hyperlipidemia 63340404 E78.5 Intentiona l weight loss 329652486 R63.8 Patient is doing well status post sleeve gastrectom y. Encouraged patient to increase calories to minimum 1000 daily. Advised 70 80 g of protein and augment with fruit healthy fruits and vegetables in order to get calories up. History of gastrectomy 472535155 Z90.3 Advised qid intake 50% protein 7819-6170 calories/d y less than 100 carbs/dyLo ng discussion today of In[employer] results including PBF(percen t body fat) SMM (skeletal muscle mass) Visceral fat level level BMR Segmental Fat Analysis and Segmental Lean Analysis.E ncouraged pt to take minimal calories as per BMR and to anticipate changes in SMM and PBF values not just total weight.Fol low-up with Repeat KTAELYN in 3mth suggested Patient is status post bariatric surgery and at increased risk for vitamin deficienci es and malnutriti on. Bariatric vitamin panel ordered today. Patient will be contacted to correct any vitamin deficienci es. [id number] HERBERT Pagan [facility] [address] [facility] [address] [place] [address] 11/21/2023 09:23:29 11/21/2023 09:59:51 Hyperlipidemia 07926818 E78.5 Rechecking lipid panel today. Impaired g lucose tolerance 9768131 R73.03 Rechecking labs today. Intentiona l weight loss 459269782 R63.8 Patient is doing well status post sleeve gastrectom y. Encouraged patient to continue focus on adequate protein and caloric intake. Advised minimum 70 g of protein and 1100 calories. Patient is to meet with dietitian today for six-month postoperat dave dietary support.Fo llow-up 3 months History of gastrectomy 107000185 Z90.3 Advised qid intake 50% protein 4055-6948 calories/d y less than 100 carbs/dyLo ng discussion today of In[employer] results including PBF(percen t body fat) SMM (skeletal muscle mass) Visceral fat level level BMR Segmental Fat Analysis and Segmental Lean Analysis.E ncouraged pt to take minimal calories as per BMR and to anticipate changes in SMM and PBF values not just total weight.Fol low-up with Repeat KATELYN in 3mth suggested Patient may continue daily omeprazole . She may try to take every other day if this controls symptoms adequately . Anticipate being able to DC this medicine as she continues to lose weight Patient is status post bariatric surgery and at increased risk for vitamin deficienci es and malnutriti on. Bariatric vitamin panel ordered today. Patient will be contacted to correct any vitamin deficienci es. At [facility] risk of nutritional deficit 834209150 Z91.89 Checking bariatric lab panel will contact patient to correct any deficienci es. Hypothyroidism 77681148 E03.9 Checking thyroid panel. Will share these results patient's PCP [id number] SANDI DUMONT RDN, LD [facility] [address] [facility] [address] [place] [address] 11/21/2023 14:24:44 11/21/2023 14:56:12 Obesity 088191103 E66.9 Discussed avoiding carbonated beverages. Continue with current intake. [id number] HERBERT Pagan [facility] [address] [facility] [address] [place] [address] 03/01/2024 08:56:45 03/01/2024 09:37:25 Impaired glucose tolerance 4190287 R73.03 Rechecking labs today. Hyperlipidemia 10751921 E78.5 Rechecking lipid panel today. Intentiona l weight loss 061880653 R63.8 Patient is doing well status post sleeve gastrectom y. Encouraged patient to continue focus on adequate protein and caloric intake. Advised minimum 70 g of protein and 1100 calories. Patient is to meet with dietitian today for six-month postoperat dave dietary support.Fo llow-up 3 months History of gastrectomy 049420479 Z90.3 Advised qid intake 50% protein 8488-5039 calories/d y less than 100 carbs/dy Long discussion today of InBody results including PBF(percen t body fat) SMM (skeletal muscle mass) Visceral fat level level BMR Segmental Fat Analysis and Segmental Lean Analysis. Encouraged pt to take minimal calories as per BMR and to anticipate changes in SMM and PBF values not just total weight. Follow-up with Repeat KATELYN in 3mth suggested Patient is status post bariatric surgery and at increased risk for vitamin deficienci es and malnutriti on. Bariatric vitamin panel ordered today. Patient will be contacted to correct any vitamin deficienci es. Hypothyroidism 43647181 E03.9 Checking thyroid panel. Will share these results patient's PCP At [facility] risk of nutritional deficit 204134988 Z91.89 Checking bariatric lab panel will contact patient to correct any deficienci es. [id number] SANDI DUMONT RDN, LD [facility] Adv S[facility] [address] [facility] [address] [place] [address] 05/24/2024 10:24:39 05/24/2024 15:05:45 Obesity 811133828 E66.9 Discussed avoiding carbonated beverages. Continue with current intake. Dietary ma nagement surveillance 056198898 Z71.3 Noncomplia nce with self-monitoring regimen 8313328768 23970 Z91.199 Takes inad equate exercise 857054304 Z72.3 [id number] HERBERT Pagan [facility] [address] [facility] [address] [place] [address] 05/24/2024 09:47:22 05/24/2024 11:19:03 Hyperlipidemia 36189324 E78.5 Minimally elevated lipid panel on recent labs. We will continue watch this. Patient has shared these results with her PCP Hypothyroidism 14830479 E03.9 Recent elevation of TSH. Patient states endocrinol ogy is adjusting her medication s. Impaired g lucose tolerance 9749013 R73.03 History of gastrectomy 832094599 Z90.3 Advised qid intake 50% protein 5840-7876 calories/d y less than 100 carbs/dyLo ng discussion today of InBody results including PBF(percen t body fat) SMM (skeletal muscle mass) Visceral fat level level BMR Segmental Fat Analysis and Segmental Lean Analysis.E ncouraged pt to take minimal calories as per BMR and to anticipate changes in SMM and PBF values not just total weight.Fol low-up with Repeat KATELYN in 3mth suggested May labs reviewed with patient in office today.Ligia ent is status post bariatric surgery and at increased risk for vitamin deficienci es and malnutriti on. Bariatric vitamin panel will be due in 3-6 months. [id number] HERBERT Pagan [facility] s and Adv Surg [address] [facility] [address] [place] [address] 08/27/2024 08:52:42 08/27/2024 10:52:21 Hypothyroidism 96608960 E03.9 Recent elevation of TSH. Patient states endocrinol ogy is adjusting her medication s. Hyperlipidemia 77925022 E78.5 Minimally elevated lipid panel on recent labs. We will continue watch this.Shivani nt has shared these results with her PCP History of gastrectomy 171738434 Z90.3 Advised qid intake 50% protein 1200 calories/d y less than 100 carbs/dyLo ng discussion today of InBody results including PBF(percen t body fat) SMM (skeletal muscle mass) Visceral fat level level BMR Segmental Fat Analysis and Segmental Lean Analysis.E ncouraged pt to take minimal calories as per BMR and to anticipate changes in SMM and PBF values not just total weight.Fol low-up with Repeat KATELYN in 3mth suggested May labs reviewed with patient in office today.Ligia ent is status post bariatric surgery and at increased risk for vitamin deficienci es and malnutriti on. Bariatric vitamin panel will be due in 3-6 months. Constipation 35687244 K5 9.00 Patient is to continue daily fiber supplement ation and MiraLax as needed. Discussed adding probiotic course. Specifical ly discussed Baribalanc e probiotic. Encouraged good hydration [id number] HERBERT Pagan [facility] s and Adv S[facility] [address] [facility] [address] [place] [address] 12/02/2024 08:27:13 12/02/2024 09:23:13 Disorder of function of stomach 342907422 K31.89 Pt is doing well off PPIShe is to report any worsenign reflux or prandial issue.Foll owup 3mth Hyperlipidemia 64333047 E78.5 Minimally elevated lipid panel on recent labs. We will continue watch this.Shivani howe has shared these results with her PCP Impaired g lucose tolerance 3156792 R73.03 Intentiona l weight loss 024301630 R63.8 Patient is doing well status post sleeve gastrectom y. Encouraged patient to continue focus on adequate protein and caloric intake. Advised minimum 70 g of protein and 1100 calories. Patient is to meet with dietitian today for six-month postoperat dave dietary support.Fo llow-up 3 months History of gastrectomy 090141185 Z90.3 Advised qid intake 50% protein 1000 calories/d y less than 100 carbs/dyLo ng discussion today of InBody results including PBF(percen t body fat) SMM (skeletal muscle mass) Visceral fat level level BMR Segmental Fat Analysis and Segmental Lean Analysis.E ncouraged pt to take minimal calories as per BMR and to anticipate changes in SMM and PBF values not just total weight.Fol low-up with Repeat KATELYN in 3mth suggested Patient is status post bariatric surgery and at increased risk for vitamin deficienci es and malnutriti on. Bariatric vitamin panel ordered today. Patient will be contacted to correct any vitamin deficienci es. At [facility] risk of nutritional deficit 495684807 Z91.89 Checking bariatric lab panel will contact patient to correct any deficienci es. [id number] HERBERT Pagan [facility] Bariatric s and Adv Surg [address] [facility] [address] [place] [address] 05/23/2025 09:30:31 05/23/2025 10:17:01 Disorder of function of stomach 632354464 K31.89 Pt is doing well off PPIShe is to report any worsening reflux or prandial issue.Foll owup 3mth Impaired g lucose tolerance [id number] R73.03 Hyperlipidemia [id number] E78.5 Minimally elevated lipid panel on recent labs. We will continue watch this.Shivani howe has shared these results with her PCP Intentiona l weight loss [id number] R63.8 E66.3 Z68.26 Patient is doing well status post sleeve gastrectom y. Encouraged patient to continue focus on adequate protein and caloric intake. Advised minimum 70 g of protein and 1100 calories.P atient declines dietitian visit todayFollo w-up 3 months History of gastrectomy [id number] Z90.3 Advised qid intake 50% protein 11-1200 calories/d y less than 100 carbs/dyLo ng discussion today of [employer] results including PBF(percen t body fat) SMM (skeletal muscle mass) Visceral fat level level BMR Segmental Fat Analysis and Segmental Lean Analysis.E ncouraged pt to take minimal calories as per BMR and to anticipate changes in SMM and PBF values not just total weight.Fol low-up with Repeat KATELYN in 3mth suggested Patient is status post bariatric surgery and at increased risk for vitamin deficienci es and malnutriti on. Bariatric vitamin panel ordered today. Patient will be contacted to correct any vitamin deficienci es. Health Concerns Section Related Observation LastModified by Organization Detai ls LastModified Time None Recorded Concern Status LastModified by Organization Details LastModified Time None Recorded Advance Directives Directive None Recorded Payers Insurance Date Sequence Insurance Name Policy Number Policy Mejia Covered Member ID Mejia Member ID Guarantor Name 05/26/2025 1 [place] [id number] 1 Hanane Titus [id number] Hanane Titus Notes Date Note Type Note Provider Name and Address Organization Details Recorded Time 05/24/2024 text/html ROS as noted in the HPI Patient presents for 1yr Post-Op Check s/p sleeve gastrectomy hiatal hernia repair 05/22/2023.Patient presents the office today for routine follow-up status post bariatric surgery. Patient doing well. Reports q.i.d. small meal intake. Reports >70g/dy protein intake and good hydration. Patient is somewhat frustrated with slowing of weight loss. Since last office visit she is lost 7.3 lbTaking routine vitamins as advised. Recent labs earlier this month show elevated TSH 15.9 and slightly elevated lipid panel otherwise vitamin panel is normal.Hx of HLD glucose intolerance deficiencyHeartburn/g astroesophageal reflux:Pt Denies : abdominal pain, prandial issues Nausea, Vomiting, bowel or bladder issuesTotal Weight loss denies 75 lb. This is 15% body fat loss since surgery. Body today shows BMI 28 with 36.8% body fat skeletal muscle mass 52.5 lb which is 108% predicted basal metabolic rate 1320Pt is happy with their quality of life after Weight loss Surgery. @9mth post op -Patient presents the office today for routine follow-up status post bariatric surgery. Patient doing well. Reports q.i.d. small meal intake. Patient continues to get in greater than 70 g of protein and proximal 100 calories. She does admit that she has let her diet go during baseball season.In body today shows BMI 29.4 with 38.2% body fat p.o. I would muscle mass 53.8 and this has 110% predicted. Patient has lost a total of 68 lb which is 13% body fat since surgery basal metabolic rate 1342Taking routine vitamins as advised. Last labs November 2023Hx of HLD glucose intolerance hypothyroidismHeartbu rn/gastroesophageal reflux: Patient states she is now taking PPI 3 days weekly. She has had no increased symptoms while attempting to wean off.Pt Denies : abdominal pain, prandial issues Nausea, Vomiting, bowel or bladder issuesPt is happy with their quality of life after Weight loss Surgery. @6mth post op -Patient presents the office today for routine follow-up status post bariatric surgery. Patient doing well. Reports q.i.d. small meal intake. Reports >70g/dy protein intake and good hydration. Daily Calories 1100Taking routine vitamins as advised. Three-month postop labs within normal limitsHx of HLD glucose intolerance deficiencyHeartburn/g astroesophageal reflux: Controlled well on daily omeprazole. Patient has anxiety regarding coming off this medication and wishes to continuePt Denies : abdominal pain, prandial issues Nausea, Vomiting, bowel or bladder issuesTotal Weight loss 56lbs and 10% PBF lossPt is happy with their quality of life after Weight loss Surgery. @3mth post op - Patient presents the office today for routine follow-up status post bariatric surgery. Patient doing well. Reports q.i.d. small meal intake. Reports >70g/dy protein intake and good hydration. Daily Calories 1100Taking routine vitamins as advised. Aug labs WNL Hx of HLD glucose intolerance deficiencyHeartburn/g astroesophageal reflux: deniesPt Denies : abdominal pain, prandial issues Nausea, Vomiting, bowel or bladder issuesTotal Weight loss 35Pt is happy with their quality of life after Weight loss Surgery. Patient states she feels great @1mth OV Patient is doing well. Tolerating PO intake w/out issue. Getting 70g/dy protein. Pt reports good hydration. Taking recommended vitamins and PPI.Pt Denies : abdominal pain, prandial issues Nausea, Vomiting, bowel or bladder issuesLoss of 20lbs.Pt is happy with their quality of life after Weight loss Surgery. HERBERT Pagan [address] , [place], [address], [facility] [place] 05/24/2024 10:37:18 05/24/2024 text/html A: JOANNA met w/ pt for f/up s/p sleeve gastrectomy hiatal hernia repair 05/22/2023. Pt weight at MD Consult: 228.6#Current Weight: 153.4#Total Weight Change: -68# Inbody Reveals:BMR = 1320SMM = -1.3#PBF = -1.6% Notes on weight: desires continued weight loss at this time Signs/SymptomsN/V/C/D : Denies Meds and labs reviewed.Notes - Recent labs earlier this month show elevated TSH 15.9 and slightly elevated lipid panel otherwise vitamin panel is normal.Hx of HLD glucose intolerance deficiency Physical activity: states this is minimal and is walking a few days a week. Otherwise is sedentary at work and taking children to extra-curriculars Est. daily kcal intake: stopped tracking but estimates 1000-1200Est. daily protein intake: 70+ g Est. daily fluid intake: 64+ oz Meal Frequency/Pattern:Pt reports eating: BLSD and eating protein first Foods frequently consumed: peanut butter, yogurt, chicken Foods occasionally consumed: vegetables - broccoli, corn, potatoes, bread, steak Drinks: protein coffee, diet pepsi, unsweet tea, water mainly Foods Not Tolerated: DeniesAdditional notes/concerns: wondering about next steps with weight management/weight maintenance SANDI DUMONT RDN, LD [address] [facility], [place], [address], [facility] [place] 05/24/2024 14:17:09 08/27/2024 text/html ROS as noted in the HPI Patient presents for 18mth Post-Op Check s/p sleeve gastrectomy hiatal hernia repair 05/22/2023.Patient presents the office today for routine follow-up status post bariatric surgery. Patient doing well. She continues to get in greater than 70 g of protein daily. Since last office visit patient has lost 6 lb. In body shows BMI 27 with 34.2% body fat basal metabolic rate 1321Taking routine vitamins as advised. Last labs May 2024 Show HLD and elevated tsh - 15. Patient did see PCP and had adjustments to thyroid medication. She brings lab today showing values have returned to normal.Hx of HLD glucose intolerance deficiencyHeartburn/g astroesophageal reflux: DeniesPt Denies : abdominal pain, prandial issues Nausea, Vomiting, bowel or bladder issuesPatient does voice concerns she has not having as frequent bowel movements as before surgery. She realizes that decrease intake would results in decreased stools but is wanting to discuss healthy bowel habits. She does use Benefiber and uses MiraLax as needed.Pt is happy with their quality of life after Weight loss Surgery. @1yr post op - Patient presents the office today for routine follow-up status post bariatric surgery. Patient doing well. Reports q.i.d. small meal intake. Reports >70g/dy protein intake and good hydration. Patient is somewhat frustrated with slowing of weight loss. Since last office visit she is lost 7.3 lbTaking routine vitamins as advised. Recent labs earlier this month show elevated TSH 15.9 and slightly elevated lipid panel otherwise vitamin panel is normal.Hx of HLD glucose intolerance deficiencyHeartburn/g astroesophageal reflux:Pt Denies : abdominal pain, prandial issues Nausea, Vomiting, bowel or bladder issuesTotal Weight loss denies 75 lb. This is 15% body fat loss since surgery. Body today shows BMI 28 with 36.8% body fat skeletal muscle mass 52.5 lb which is 108% predicted basal metabolic rate 1320Pt is happy with their quality of life after Weight loss Surgery. HERBERT Pagan [address], [place], [address], [facility] [place] [facility] [place] 08/27/2024 09:29:01 12/02/2024 text/html ROS as noted in the HPI Patient presents for Post-Op Check s/p sleeve gastrectomy hiatal hernia repair 05/22/2023.Patient presents the office today for routine follow-up status post bariatric surgery. Patient doing well. She continues to get in greater than 70 g of protein daily. Since last office visit patient has lost 6 lb. In body shows BMI 25.9 with 32% body fat basal metabolic rate 1315Taking routine vitamins as advised. Last labs May 2024 Show HLD and elevated tsh - 15. Patient did see PCP and had adjustments to thyroid medication. She brings lab today showing values have returned to normal.Hx of HLD glucose intolerance deficiencyHeartburn/g astroesophageal reflux: Denies off PPIPt Denies : abdominal pain, prandial issues Nausea, Vomiting, bowel or bladder issuesPt is happy with their quality of life after Weight loss Surgery. HERBERT Pagan [address], [place], [address], [facility] [place] [facility] [place] 12/02/2024 09:36:07 05/23/2025 text/html ROS as noted in the HPI Patient presents for Post-Op Check s/p sleeve gastrectomy hiatal clementine doing a repair 05/22/2023.Patient returns to clinic today for routine follow-up. She continues to do well. She denies prandial issue or heartburn. She continues to eat small frequent meals and reports 70+ g of protein daily.Review of in body shows patient has essentially maintained. Current BMI is 26 with 32.8% body fat visceral fat level normal at 9 basal metabolic rate 1305Taking routine vitamins as advised. Patient recently had lab work and this was reviewed today bariatric panel normalHeartburn/gastr oesophageal reflux: DeniesPt Denies : abdominal pain, prandial issues Nausea, Vomiting, bowel or bladder issuesPt is happy with their quality of life after Weight loss Surgery. @Nov 2024 OV - Patient doing well. She continues to get in greater than 70 g of protein daily. Since last office visit patient has lost 6 lb. In body shows BMI 25.9 with 32% body fat basal metabolic rate 1315Taking routine vitamins as advised. Last labs May 2024 Show HLD and elevated tsh - 15. Patient did see PCP and had adjustments to thyroid medication. She brings lab today showing values have returned to normal.Hx of HLD glucose intolerance deficiencyHeartburn/g astroesophageal reflux: Denies off PPIPt Denies : abdominal pain, prandial issues Nausea, Vomiting, bowel or bladder issuesPt is happy with their quality of life after Weight loss Surgery. HERBERT Pagan [address], [place], [address], [facility] [place] [facility] [place] 05/23/2025 10:26:52 OBGyn Episode No OBEpisode recorded.
--- OUTSIDE RECORDS SUMMARY | 2025-08-22 07:53 | XMS_ITS | Patient Health Record ---
Author Organization [facility] Address [address] [facility] [address] [place] [address] Care Team Providers Care Wilderness Guide Name Role Phone Юлия Hogan Unavailable [phone] Allergies No Known Allergies Results Component Value Reference Range Notes Pap w/HPV Reviewed date:02/09/2025 03:25:47 PM Interpretation:Pap normal, HPV negative Performing Lab:[facility] - [facility] CLIA ID [id number], [address], [address], [place] [address], Director - Oniel Das MD Notes/Report: Any Nucleic Acid Amplification testing is performed on the [facility] [place]. Diagnosis: Negative for intraepithelial lesion or malignancy. AP results Dental Professional Lupe Bruner Satisfactory for interpretation with endocervical/transformat ion zone component present. LMP: . Results of Last Pap: Not provided Other Gynecological Patient Information: Not provided Specimen Type: ThinPrep ICD Codes: Z01.419 Date of Last Pap: Not provided CPT Codes: 57907 Recommendation: Follow-up based on current clinical guidelines and/or clinical consideration. Negative for intraepithelial lesion or malignancy. Screening note: This specimen has been analyzed by the ThinPreMimiboard Imaging System, an interactive computer system which assists the lab in screening of ThinPrep Pap Test slides. Following imaging, the slide was reviewed by a Dental Professional and/or Pathologist. Collection Technique: Not provided FINAL ESTIMATE CLERK CYTOLOGY REPORT Specimen Adequacy: Negative Educational Note: The pap screening test aids in the detection of premalignant and malignant states of the cervix. False positive and negative results may occur. It is not a diagnostic test. If abnormal cells are reported, follow-up based on current clinical guidelines and/or clinical consideration is recommended. DIAGNOSIS: Pertinent Clinical History/History of Surgery: Not provided Specimen Source: Cervical/Endocervical HPV High-Risk Negative Negative Reason For Referral Reason Screening Bilateral MMG- U/S if needed Diagnosis 1 *Encounter for alec ramírezg mammogram for malignant neoplasm of breast (Code also - any family Hx of malignant neoplasm (Z80.-) (Z12.31) Referral Organization [facility] Referring Provider First Name Юлия Referring Provider Last Name Samira Referring Provider Speciality OB - Gynec ology General Notes Юлия Shea 04/25 03:59:29 PM EDT [phone] Referral Priority Routine Medications Medication SIG (Take, Route, Frequency, Duration) Notes Start Date End Date Status Synthroid 150 MCG Tablet 1 tablet in the morning on an empty stomach Orally Once a day Active Wellbutrin Active Social History Sex Assigned At : Social History Observation Description Sex Assigned At Female Social History Sexual History: Social Info Question Answer Notes Sexual History Had sex in the past 12 months (vaginal, oral, or anal)? Yes Drugs/Alcohol: Social Info Question Answer Notes Drugs Have you used drugs other than those for medical reasons in the past 12 months? No Alcohol Screen Did you have a drink containing alcohol in the past year? No Points 0 Interpretation Negative Problems Problem Type SNOMED Code ICD Code Onset Dates Problem Status W/U Status Risk Notes Problem Low-grade squamous intraepithelial lesion (794426729) LGSIL (low grade squamous intraepithelial dysplasia) (R89.6) Active confirmed Problem Abnormal uterine bleeding (26473726149683) Abnormal uterine bleeding (AUB) (N93.9) Active confirmed Problem Third trimester (54378159) Supervision of other normal , third trimester (Z34.83) Active confirmed Supervision of other normal , third trimester Problem state, 2 weeks (56778677) 2 weeks follow-up (Z39.2) Active confirmed visit Problem Gestation period, 24 weeks (807865155) 24 weeks gestation of (Z3A.24) Active confirmed 24 weeks gestation of Problem Gestation period, 36 weeks (71592123) 36 weeks gestation of (Z3A.36) Active confirmed 36 weeks gestation of Problem Gestation period, 28 weeks (71398257) 28 weeks gestation of (Z3A.28) Active confirmed 28 weeks gestation of Problem Gestation period, 30 weeks (40393721) 30 weeks gestation of (Z3A.30) Active confirmed 30 weeks gestation of Problem Gestation period, 32 weeks (5350591) 32 weeks gestation of (Z3A.32) Active confirmed 32 weeks gestation of Problem Gestation period, 37 weeks (52672154) 37 weeks gestation of (Z3A.37) 016 Active confirmed 37 weeks gestation of Problem Gestation period, 38 weeks (29236973) 38 weeks gestation of (Z3A.38) Active confirmed 38 weeks gestation of Problem *Decreased movements, 3rd trimester - Leblanc (Code also - Weeks of gestation Z3A) (O36.8130) Active confirmed Decreased movement, third trimester Problem Gynecological examination normal (175695483905957) Cervical smear, as part of routine gynecological examination (Z01.419) Active confirmed Annual without abnormal findings Problem Accidental antepartum hemorrhage in second trimester (O46.92) Active confirmed Vaginal bleeding, second trimester Problem History of psychiatric disorder (726507213) Confusion, hx of, without neuro findings (Z86.59) Active confirmed Hx of drug abuse Vital Signs Blood pressure diastolic 74 mm Hg 02/02/2025 Height 64 in 02/02/2025 Blood pressure systolic 122 mm Hg 02/02/2025 Weight 142.4 lbs 02/02/2025 BMI 24.44 kg/m2 02/02/2025 Encounters Encounter Location Date Provider Diagnosis [facility] [address] [place] [address] 02/02/2025 Юлия Hogan Junior Legal Secretary exam without abnormal findings Z01.419 and Family history of breast cancer Z80.3 Assessments Encounter Date Diagnosis (ICD Code) Assessment Notes Treatment Notes Treatment Clinical Notes Section Notes 02/02/2025 Family history of breast cancer (ICD-10 - Z80.3) 02/02/2025 Junior Legal Secretary exam without abnormal findings (ICD-10 - Z01.419) Normal annual exam Pap performed BSE encouraged Plan Of Treatment Next Appt Details Provider Name:Юлия Hogan , 02/08/2026 08:30:00 AM, [address], [place], [address], Insurance Providers Payer Name Payer Address Payer Phone Subscriber Number Group Number Insured Name Patient Relationship to Insured Coverage Start Date Coverage End Date Porfirio WILLIAMSONO [address] [place] [address] [id number] Hanane Titus Self - patient is the insured Medical (General) History Medical History History ICD Code Hypothyroidism Obesity Anxiety Depression abnormal paps HPV Surgical History Surgery Date(Month/Year) Breast Reduction (09/2016) Gastric sleeve surgery 05/2023 Hospitalization History Reason Date(Month/Year) L&D
--- OUTSIDE RECORDS SUMMARY | 2025-08-22 07:53 | XMS_ITS | Encounter Summary ---
Author Organization [facility] Address [address] [place] [address] Care Team Providers Care Wheel Filler Name Role Phone Sherley Dean APRN Primary Care Provider [phone] Reason for Visit * Reason Comments Med Refill Encounter Details Date Type Department Care Team ([facility] Contact Info) Description 07/28/2025 Refill [facility] [address] [facility] [facility] [facility] [address] [place] [phone] Yasmeen Olivares MD [address] [facility] [place] [phone] Social History Tobacco Use Types Packs/Day Years [...] AM EDT documented as of this encounter Miscellaneous Notes * Telephone Encounter - Renuka Martinez MA - 07/28/2025 8:47 AM EDT Rx Refill Note Requested Prescriptions Pending Prescriptions Disp Refills levothyroxine (SYNTHROID, LEVOTHROID) 137 MCG tablet [Pharmacy Med Name: Levothyroxine Sodium 137 MCG Oral Tablet] 90 tablet 0 Sig: Take 1 tablet by mouth once daily buPROPion XL (WELLBUTRIN XL) 150 MG 24 hr tablet [Pharmacy Med Name: buPROPion HCl ER (XL) 150 MG Oral Tablet Extended Release 24 Hour] 90 tablet 0 Sig: TAKE 1 TABLET BY MOUTH ONCE DAILY IN THE MORNING Last office visit with prescribing clinician: 05/24/2025 Next office visit with prescribing clinician: 05/25/2026 } Renuka Martinez MA 07/28/25, 08:47 EDT documented in this encounter Plan of Treatment Upcoming Encounters Date Type Department Care Team (Late st Contact Info) Description 05/25/2026 8:15 AM EDT Office Visit [facility] [address] [address] Yasmeen Olivares MD [address] [address] documented as of this encounter Visit Diagnoses Not on filedocumented in this encounter Care Teams Wheel Filler Relationship Specialty Start Date End Date Sherley Dean APRN [address] [place] [address] PCP - General Nurse Practitioner 05/13/23 documented as of this encounter
--- OUTSIDE RECORDS SUMMARY | 2025-08-22 07:53 | XMS_ITS | Encounter Summary ---
Author Organization [facility] Address [address] [place] [address] Care Team Providers Care Supervisor Trust Accounts Name Role Phone Sherley Dean APRN Primary Care Provider [phone] Reason for Visit * Reason Onset Date Comments Med Refill 07/28/2025 Encounter Details Date Type Department Care Team (Late Contact Info) Description 07/28/2025 Refill [facility] [address] [place] [address] Yasmeen Olivares MD [address] [place] [phone] Social History Tobacco Use Types Packs/Day Years [...] Description 05/25/2026 8:15 AM EDT Office Visit [facility] [address] [place] [address] Yasmeen Olivares MD [address] [facility] [address] [place] [address] documented as of this encounter Visit Diagnoses Not on filedocumented in this encounter Care Teams Supervisor Trust Accounts Relationship Specialty Start Date End Date Sherley Dean APRN [address] [place] [address] PCP - General Nurse Practitioner 05/13/23 documented as of this encounter
--- OUTSIDE RECORDS SUMMARY | 2025-08-22 07:53 | XMS_ITS | Clinical Summary ---
Author Organization [facility] Address [address] [place] [address] Care Team Providers Care Research Methods Instructor Name Role Phone Sherley Dean APRN Primary Care Provider [phone] Allergies Active Allergy Reactions Criticality Noted Date Comments No Known Drug Allergy 04/17/2016 Medications levothyroxine (SYNTHROID, LEVOTHROID) 137 MCG tablet Take 1 tablet by mouth once daily 90 tablet 3 5 Active buPROPion XL (WELLBUTRIN XL) 150 MG 24 hr tablet TAKE 1 TABLET BY MOUTH ONCE DAILY IN THE MORNING 90 tablet 3 5 Active buPROPion XL (WELLBUTRIN XL) 150 MG 24 hr tablet TAKE 1 TABLET BY MOUTH ONCE DAILY IN THE MORNING 90 tablet 1 5 07/28/20 25 Discontinued levothyroxine (SYNTHROID, LEVOTHROID) 137 MCG tablet Take 1 tablet by mouth once daily 90 tablet 1 5 07/28/20 25 Discontinued Active Problems Problem Noted Date Diagnosed Date Slow transit constipation 05/07/2022 Assessment & Plan (05/07/2022 1:20 PM EDT): Check tsh Using otc tx with occ relief Drinking plenty of fluids Anxiety 04/17/2016 Overview (04/17/2016): Impression: 01/05/2016 - trial bupropion; Assessment & Plan (06/24/2016 2:42 PM EDT): Increase wellbutrin to 300 mg daily Gestational diabetes mellitus, delivered 016 Overview (04/17/2016): Impression: 07/07/2015 - prediabetes now strategies for weight loss discussed gave email and she will let me know if she would like dietary referral or medications Impression: 03/14/2015 - now prediabetes- discussed goals blood sugar and hgn a1c , has lost 8 lbs with diet and exercise f/u 2 - 3months discussed treatment options Impression: 01/18/2015 - update hgn a1c Impression: 11/13/2014 - reviewed blood sugar and hgn a1c, [facility] weight loss and diet, discussed risk of progression to dm; Assessment & Plan (03/16/2018 2:11 PM EDT): Blood sugar was 143 hgn a1c -5.7% Discussed diet, exercise Work on weight loss Assessment & Plan (06/24/2016 2:41 PM EDT): Blood sugar and 90 day average sugar reviewed with her 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 update tft in 1 week; Assessment & Plan (05/24/2025 8:30 AM EDT): Update tfts, abs today Continue synthroid 137 mcg daily Assessment & Plan (05/24/2024 9:33 AM EDT): Outside lab work reviewed with TSH 15 05/26 Increase supplement from 125 mcg daily to 150 mcg daily with repeat tfts in 8 weeks Discussed medication from supplements, vitamins by 1 hour prior or 2 hours after Can take thyroid hormone at hs if works with her schedule She denies missed doses or problems with dosing Assessment & Plan (05/13/2023 2:47 PM EDT): Energy is good overall Taking levothyroxine 125 mcg daily Check tfts Assessment & Plan (05/07/2022 1:18 PM EDT): Continue euthyrox 125 mcg daily and check tfts Assessment & Plan (05/03/2021 1:49 PM EDT): Update tfts and abs Assessment & Plan (05/04/2020 1:42 PM EDT): On euthyrox- feels well most of the time Check tfts Assessment & Plan (03/04/2019 1:34 PM EDT): Update tfts Assessment & Plan (03/16/2018 2:12 PM EDT): Check tfts Fatigue all the time Discussed sleep apnea (some am headaches) Assessment & Plan (09/10/2017 6:14 PM EST): Check tfts today F/u 6 months then yearly Assessment & Plan (03/06/2017 2:41 PM EDT): Check tfts Assessment & Plan (06/24/2016 2:41 PM EDT): tsh 0.1 - continue 0.112 mg daily but take 1/2 pill on Sundays Iron deficiency 04/17/2016 Assessment & Plan (05/07/2022 1:19 PM EDT): Update iron levels Assessment & Plan (03/04/2019 1:33 PM EDT): Not currently on supplement Is on ocp Assessment & Plan (03/16/2018 2:12 PM EDT): Check cbc / iron levels Adiposity 04/17/2016 Impaired glucose tolerance 04/17/2016 Overview (04/17/2016): Impression: 07/07/2015 - check blood sugar, update hgn a1c f/u 6 months; Assessment & Plan (05/07/2022 1:19 PM EDT): Blood sugar and 90 day average sugar reviewed Results for orders placed or performed in visit on 05/07/22 POC Glycosylated Hemoglobin (Hb A1C) Specimen: Blood Result Value Ref Range Hemoglobin A1C 5.0 % Lot Number [id number] Expiration Date 01/02/2024 POC Glucose, Blood Specimen: Blood Result Value Ref Range Glucose 74 70 - 130 mg/dL Lot Number [id number] Expiration Date 11/15/2022 Average sugar is 90 Continue to work on diet, exercise Assessment & Plan (05/03/2021 1:49 PM EDT): Repeat blood work normal Continue monitoring Discussed diet, exercise Assessment & Plan (05/04/2020 1:43 PM EDT): Blood sugar and 90 day average sugar reviewed Results for orders placed or performed in visit on 05/04/20 POC Glycosylated Hemoglobin (Hb A1C) Result Value Ref Range Hemoglobin A1C 5.1 % POC Glucose Fingerstick Result Value Ref Range Glucose 100 70 - 130 mg/dL Doing very well- commended diet and weight loss Recheck yearly Assessment & Plan (03/04/2019 1:34 PM EDT): Risk of progression for diabetes discussed Dietary modifications reviewed Recommended 150 min of exercise weekly F/u at least yearly Assessment & Plan (03/16/2018 2:21 PM EDT): Discussed blood sugar and 90 day average sugar Results for orders placed or performed in visit on 03/16/18 POC Glycosylated Hemoglobin (Hb A1C) Result Value Ref Range Hemoglobin A1C 5.7 % POC Glucose Fingerstick Result Value Ref Range Glucose 143 (A) 70 - 130 mg/dL She just ate Continue to work on diet, increase physical activity Improved average sugar- recheck yearly Assessment & Plan (03/06/2017 2:41 PM EDT): Doing well - continue to work on diet, weight loss Blood sugar and 90 day average sugar reviewed Results for orders placed or performed in visit on 03/06/17 POC Glycosylated Hemoglobin (Hb A1C) Result Value Ref Range Hemoglobin A1C 5.5 % POC Glucose Fingerstick Result Value Ref Range Glucose 90 70 - 130 mg/dL F/u 6 months Abnormal thyroid ultrasound 04/17/2016 Overview (04/17/2016): Impression: 07/07/2015 - normal u/s Impression: 03/14/2015 - is up to date with u/s Impression: 01/18/2015 - reviewed u/s with her- no dom nodule- heterogenous f/u yearly Impression: 11/13/2014 - check u/s; Assessment & Plan (05/13/2023 2:47 PM EDT): C/w hashimotos- no dominant nodule by most recent u/s No nodule noted on exam today Continue to monitor Outside lab work reviewed Assessment & Plan (09/10/2017 6:16 PM EST): Abnormal u/s - update with next ov and then decide if further f/u is needed (defer to Dr Miles in this regard) Assessment & Plan (03/06/2017 2:42 PM EDT): Has f/u scheduled 06/18 u/s stable Dr Miles Assessment & Plan (06/24/2016 2:41 PM EDT): Discussed u/s Vitamin D deficiency 04/17/2016 Assessment & Plan (05/07/2022 1:19 PM EDT): Not taking supplement currently Check vitamin D level Assessment & Plan (05/04/2020 1:42 PM EDT): Is on vitamin D supplement- check vitamin D levels Assessment & Plan (03/04/2019 1:33 PM EDT): Continue otc supplement, update levels Assessment & Plan (03/16/2018 2:12 PM EDT): Update vitamin D levels Assessment & Plan (03/06/2017 2:40 PM EDT): Update vitamin d levels Assessment & Plan (06/24/2016 2:27 PM EDT): On supplement Encounters Date Type Department Care Team Description 07/28/2025 Refill [facility] [address] [place] [address] Yasmeen Olivares MD 07/28/2025 Refill [facility] [address] [place] [address] Yasmeen Olivares MD 05/26/2025 Results Follow-Up [facility] [address] [place] [address] Yasmeen Olivares MD 05/24/2025 8:15 AM EDT Office Visit [facility] [address] [place] [address] Yasmeen Olivares MD 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 (Primary Dx) 05/24/2025 Travel from Last 3 Months Immunizations Immunization Administration Dates Next Due Influenza, Unspecified 09/11/2010 Family History Medical History Relation Name Comments Thyroid disease Father Mitchell Hypothyroid Heart disease Maternal Grandfather Arrhythmia Mother Arthritis Mother Arthritis Other 1 Grandmother Bleeding Disorder Other 1 Grandmother Thyroid disease Other 1 Grandmother Hypertension Other 2 Grandfather Stroke Paternal Grandmother Relation Name Status Comments Father Mitchell Alive Maternal Grandfather Mother Alive Other 1 Grandmother Other 2 Grandfather Paternal Grandmother Social History Tobacco Use Types Packs/Day Years Used Date Smoking Tobacco: Never Smokeless Tobacco: Never Tobacco Cessation:Counseling Given: Not Answered Alcohol Use Standard Drinks/Week Comments No 0 (1 standard drink = 0.6 oz pur e alcohol) Comments No Sex and Gender Information Value Date Recorded Sex Assigned at Female 05/17/2025 9:16 AM EDT Legal Sex Female 12:51 PM EDT Gender Identity Not on file Sexual Orientation Straight 05/17/2025 9: 16 AM EDT Last Filed Vital Signs Vital Sign Reading Time Taken Comments Blood Pressure 118/64 05/24/2025 8:00 AM EDT Pulse 81 05/24/2025 8:00 AM EDT Temperature - - Respiratory Rate 18 03/04/2019 12:43 PM EDT Oxygen Saturation 99% 05/24/2025 8:00 AM EDT Inhaled Oxygen Concentration - - Weight 65 kg (143 lb 3.2 oz) 05/24/2025 8:00 AM EDT Height 157.5 cm (5' 2 ) 05/24/2025 8:00 AM EDT Body Mass Index 26.19 05/24/2025 8:00 AM EDT Plan of Treatment Upcoming Encounters Date Type Department Care Team (Late st Contact Info) Description 05/25/2026 8:15 AM EDT Office Visit [facility] [address] [place] [address] Yasmeen Olivares MD [address] [place] [address] Health Maintenance Due Date Last Done Comments Annual Gynecologic Pelvic an d Breast Exam 1984 TDAP/TD VACCINES (1 - Tdap) 2003 PAP SMEAR 2005 ANNUAL PHYSICAL 06/06/2016 MAMMOGRAM 2024 INFLUENZA VACCINE 06/03/2025 09/11/2010 HEPATITIS C SCREENING Completed 05/04/2020 Pneumococcal Vaccine 0-49 Aged Out No longer eligible based on patient's age to complete this topic Procedures Procedure Name Priority Date/Time Associated Diagnosis Comments THYROID ANTIBODIES Routine 05/24/2025 8: 22 AM EDT 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 T4, FREE Routine 05/24/2025 8:22 AM EDT 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 TSH Routine 05/24/2025 8:22 AM EDT 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 The assay runstitching machine operator has found that four percent of individuals without evidence of thyroid disease or autoimmunity will have positive TgAb levels up to 4 IU/mL. Blood Structure of left upper limb / Unknown Venipuncture / Unknown 05/24/2025 8:22 AM EDT 05/24/2025 8:22 AM EDT Narrative [facility] - 05/25/2025 3:10 PM EDT Performed at: [address] [place] [id number] Poultry Hatchery Man: Kurt Hayden PhD, Phone: [phone] Yasmeen Olivares MD LAB BLOOD ORDERABLES Fin al Result [facility] [address] [place] [address], * TSH (05/24/2025 8:22 AM EDT) TSH 1.800 0.270 - 4.200 uIU/mL 05/24/2025 3:01 PM EDT [facility] Blood Venipuncture / Unknown 05/24/2025 8:22 AM EDT 05/24/2025 8:22 AM EDT us Yasmeen Olivares MD LAB BLOOD ORDERABLES Fin al Result Performing Organization Address City/[facility] Co de Phone Number [facility]
[address] [place] [address], * T4, Free (05/24/2025 8:22 AM EDT) [facility] Free T4 1.56 0.92 - 1.68 ng/dL 05/24/2025 3:01 PM EDT [facility] Blood Venipuncture / Unknown 05/24/2025 8:22 AM EDT 05/24/2025 8:22 AM EDT us Yasmeen Olivares MD LAB BLOOD ORDERABLES Fin al Result Performing Organization Address [facility] Co de Phone Number [facility]
[address] [place] [address], * Hepatitis C Antibody (05/04/2020 1:38 PM EDT) [facility] Hepatitis C Ab Non-Reacti ve Non-Reacti ve 05/04/2020 11:58 PM EDT [facility] Blood Venipuncture / Unknown 05/04/2020 1:38 PM EDT 05/04/2020 1:39 PM EDT Narrative [facility] - 05/04/2020 11:58 PM EDT Results may be falsely decreased if patient taking Biotin. us Yasmeen Olivares MD LAB BLOOD ORDERABLES Fin al Result Performing Organization Address [facility] Co de Phone Number [facility]
[address] [place] [address], from Last 3 Months or Most Recently Relevant to Health Maintenance Insurance EMPLOYEE Care Teams Research Methods Instructor Relationship Specialty Start Date End Date Sherley Dean APRN [address] [place] [address] PCP - General Nurse Practitioner 05/13/23
--- OUTSIDE RECORDS SUMMARY | 2025-08-22 07:53 | XMS_ITS | Encounter Summary ---
Author Organization [facility] Address [address] [place] [address] Care Team Providers Care Supervisor Blood Donor Recruiters Name Role Phone Sherley Dean APRN Primary Care Provider Reason for Visit * Reason Comments Med Refill Encounter Details Date Type Department Care Team ([facility] Contact Info) Description 08/29/2020 Refill [facility] [address] [place] [phone] Yasmeen Olivares MD [address] [facility] [address] [place] [phone] Social History Tobacco Use Types Packs/Day Years [...] encounter Miscellaneous Notes * Telephone Encounter - Maryanne Abdul MA - 08/29/2020 8:[address] Olivares, refill request. Thank you. OTONIEL: 05/04/20 Future visit: 05/03/21 Last refill: 04/17/20 Q. 90 R. 0 Sig: Take 1 tablet by mouth once daily [facility] pharmacy. documented in this encounter Plan of Treatment Upcoming Encounters Date Type Department Care Team (Late st Contact Info) Description 05/25/2026 8:15 AM EDT Office Visit [facility] [address] [address] Yasmeen Olivares MD [address] [phone] documented as of this encounter Visit Diagnoses Not on filedocumented in this encounter Care Teams Supervisor Blood Donor Recruiters Relationship Specialty Start Date End Date Sherley Dean APRN [address] [place] [address] PCP - General Nurse Practitioner 05/13/23 documented as of this encounter
--- OUTSIDE RECORDS SUMMARY | 2025-08-22 07:54 | XMS_ITS | Clinical Summary ---
Author Organization Healthcare [place] [address] Care Team Providers Care Spine Supervisor Name Role Phone Unavailable Primary Care Provider Unavailabl e Social History Tobacco Use Types Packs/Day Years Used Date Smoking Tobacco: Never Assessed Comments Unknown Sex and Gender Information Value Date Recorded Sex Assigned at Not on file Legal Sex Female 8:00 PM EDT Gender Identity Not on file Sexual Orientation Not on file Last Filed Vital Signs Vital Sign Reading Time Taken Comments Blood Pressure 148/92 05/02/2023 4:24 PM EDT Pulse 81 05/02/2023 4:24 PM EDT Temperature - - Respiratory Rate - - Oxygen Saturation - - Inhaled Oxygen Concentration - - Weight 106 kg (233 lb) 05/02/2023 4:24 PM EDT Height 162.6 cm (5' 4 ) 05/02/2023 4:24 PM EDT Body Mass Index 39.99 05/02/2023 4:24 PM EDT Plan of Treatment Health Maintenance Due Date Last Done Comments [facility]-Depression Screening 1984 [facility]-Infant/Child/Adol SDOH Screenings 1984 [facility]-Varicella Vaccines (1 of 2 - 13+ 2-dose series) 1997 [facility]- SDOH Screenings 2002 [facility]-Adult SDOH Screenings 2002 [facility]-DTaP,Tdap,and Td Vaccine s (1 - Tdap) 2003 [facility]-Hepatitis B Vaccines (1 of 3 - 19+ 3-dose series) 2003 [facility]-Pap Smear 2005 HPV Vaccines (1 - 3-dose SCD M series) 2011 [facility]-Cervical Cancer Screening 2014 [facility]-HPV/Cotest 2014 [id number] Vaccine (1 - 20 24-25 season) 2025 [facility]-Influenza Vaccine (#1) 2025 [facility]-Zoster Vaccines (1 of 2) 2034 [facility]-HIB Vaccines Aged Out No longer e ligible based on patient's age to complete this topic [facility]-Hepatitis A Vaccines Aged Out No longer eligible based on patient's age to complete this topic [facility]-IPV Vaccines Aged Out No longer e ligible based on patient's age to complete this topic [facility]-Pneumococcal Vaccine: Pediatrics (0 to 5 Years) and At-Risk Patients (6 to 49 Years) Aged Out No long er eligible based on patient's age to complete this topic [facility]-Rotavirus Vaccines Aged Out No lo nger eligible based on patient's age to complete this topic Insurance
== END 2025-08-22 23:59 | disposition home or self-care (01) ==
LOC: RAD 07:48
PROVIDERS: PCP Nurse Practitioner Family; Visit Provider Family Medicine
DX: Z12.31 Encounter for screening mammogram for malignant neoplasm of breast (principal); R92.323 Mammographic fibroglandular density, bilateral breasts
CPT/HCPCS: 77063; 77067